=== PATIENT | male | born 1950 | race Caucasian/White ===

== ENCOUNTER 2016-05-01 17:50 | Inpatient (IN) | payer MEDICARE ==
--- NOTE | ~2016-05-01 | PN ---
Unit #: [id number] #: [id number] Patient: TEJAL ORTIZ [id number] [facility] [address] [place] [address] [id number] I MR#: [id number] NAME: TEJAL ORTIZ ROOM: P210 Age: 65 Sex: M Admission Date: 05/01/2016 : 1950 Attending Physician: Zackery Álvarez M.D. Admitting Physician: Zackery Álvarez M.D. Primary Care Physician: Primary Care Physician Bisi JACKSON PROGRESS NOTES DATE OF SERVICE 05/10/2016 DISCUSSION Mr. Ortiz is a 65-year-old white male who was seen today. Chart was reviewed and case was discussed with the staff. He remains anxious, withdrawn, depressed, and rather seclusive to himself. Meanwhile, he has been cooperative with the treatment recommendations and has been taking the medications and tolerating them fairly well with no reported side effects. MENTAL STATUS EXAMINATION An elderly white male who is casually dressed with fair personal hygiene, appears to be in no acute distress or discomfort. The patient was awake and alert on interaction with intact orientation. His mood is anxious with congruent affect. Speech is slow and goal-directed. He denies any suicidal or homicidal ideations. His insight and judgment remain slightly impaired. TREATMENT PLAN 1. We will continue him on his current medications and treatment protocol. We will monitor his response and make further adjustments as needed. 2. We will continue to follow up. Dictated by... Zackery Álvarez M.D. IAA/bzg TD: 05/11/2016 10:13 JOB #: [id number] Unit #: [id number] #: [id number] Patient: TEJAL ORTIZ PEABEKAH PROGRESS NOTES X Zackery Álvarez MD PROGRESS NOTE
--- NOTE | ~2016-05-01 | PN ---
Unit #: [id number] #: [id number] Patient: TEJAL STANTON [id number] [facility] [address] [place] [address] [id number] I MR#: [id number] NAME: TEJAL STANTON ROOM: P210 Age: 65 Sex: M Admission Date: 05/01/2016 : 1950 Attending Physician: Zackery Álvarez M.D. Admitting Physician: Zackery Álvarez M.D. Primary Care Physician: Primary Care Physician Bisi LUEVANO NOTES DATE 05/03/2016 DISCUSSION Mr. Stanton is a 65-year-old, white male with alcohol dependence and mood disorder who was seen today and chart was reviewed and case was discussed with the staff. He seemed to be anxious, withdrawn and seclusive to himself. Meanwhile, he has been cooperative with treatment recommendations. He has been taking medications and tolerating them fairly well with no reported side effects. MENTAL STATUS EXAM An elderly white male who was casually dressed with marginal personal hygiene, appears to be in some distress or discomfort. He was awake and alert with impaired attention and concentration. His mood was anxious with congruent affect. His speech was slow and restricted in content. His thought processes were disorganized with some looseness of associations. His insight and judgement remains slightly impaired. TREATMENT PLAN 1. We will continue him on his current medications and treatment protocol. We will monitor his response to the medication and make further adjustments as needed. 2. We will continue to follow up. Dictated by... Ayde Louis/oziel TD: 05/04/2016 00:26 JOB #: [id number] Unit #: [id number] #: [id number] Patient: TEJAL STANTON JOSEBEKAH PROGRESS NOTES X Zackery Álvarez MD PROGRESS NOTE
--- NOTE | ~2016-05-01 | PN ---
Unit #: [id number] #: [id number] Patient: TEJAL STANTON [id number] [facility] [address] [place] [address] [id number] I MR#: [id number] NAME: TEJAL STANTON ROOM: P210 Age: 65 Sex: M Admission Date: 05/01/2016 : 1950 Attending Physician: Zackery Álvarez M.D. Admitting Physician: Zackery Álvarez M.D. Primary Care Physician: Primary Care Physician Bisi LUEVANO NOTES DATE OF SERVICE 05/02/2016 DISCUSSION Mr. Stanton is a 65-year-old white male who was seen today. Chart was reviewed and case was discussed with the staff. He has been anxious, withdrawn though has not shown any agitation or irritability and has been cooperative with treatment recommendations and has been taking the medications and tolerating them fairly well with no reported side effects. MENTAL STATUS EXAMINATION An elderly white male who is casually dressed with marginal personal hygiene, appears to be in distress and discomfort. He was awake and alert with impaired attention and concentration. His mood is anxious with a congruent affect. His speech is slow and restricted in content. His thought processes were disorganized with some looseness of associations and paranoid ideations. His insight and judgment remain significantly impaired. TREATMENT PLAN 1. We will continue him on his current medications and treatment protocol. We will monitor his response to the medications and make further adjustments as needed. 2. We will continue to follow up. Dictated by... Ayde Louis/haiderg TD: 05/03/2016 08:48 JOB #: [id number] Unit #: [id number] #: [id number] Patient: TEJAL STANTON PEABEKAH PROGRESS NOTES X Zackery Álvarez MD PROGRESS NOTE
--- NOTE | ~2016-05-01 | A ---
[facility] Nutrition Therapy DATE: 05/16/16 Patient: TEJAL STANTON Physician: YOUSIFF Address: [facility] Room/Bed: [address], Zip: [place] [address] Admit Date: 05/01/16 Date of : [birth year] Height: 5 9 Weight: [phone] NUTRITIONAL ASSESSMENT: REASON: LOS PATIENT ADMITTED FOR ETOH ABUSE PMH: HTN, COPD Anthropometrics: HT: 5'9", WT: 206, BMI: 30.4, %IBW: 129 Labs: 05/02/16- NUTRITIONAL LABS WNL Meds: PROZAC, VISTARIL, SEROQUEL, REMERON, MVI, PATIENT COMPLETED DETOX PROTOCOL Assessment: CHART REVIEWED, EVENTS NOTED. PATIENT IS A 65 Y/O MALE ADMITTED FOR ETOH ABUSE. PATIENT IS CURRENTLY RETIRED, HOMELESS, AND HAS DAILY ETOH ABUSE. PATIENT STATED NO RECENT WEIGHT LOSS. WEIGHT HX PER [employer] SHOWS WEIGHT FLUCTUATIONS OF 180-206# OVER LAST 5 YEARS, HOWEVER WEIGHTS DO SHOW AN UPWARD TREND. NURSING REPORTS CONSISTENTLY GOOD PO INTAKES. PATIENT HAS A HX OF INPATIENT PSYCH HOSPITALIZATIONS WITH A HX OF POOR COMPLIANCE WITH TREATMENT RECOMMENDATIONS AND OUTPATIENT FOLLOW-UP. THERE ARE NO SKIN OR GI ISSUES NOTED ATT. PATIENT IS ON A REGULAR DIET WITH LARGE PORTION ENTREES. Dx: EXCESSIVE CALORIC INTAKE R/T CURRENT CONDITION AEB HIGH BMI, >110% IBW, WEIGHTS TRENDING UP OVER LAST 5 YEARS. Intervention: 1. REGULAR DIET WITH LARGE PORTION ENTREES, 2. MEDS PER MD, 3. PSYCH Monitoring, Evaluation and Goals: 1. ADEQUATE PO INTAKES >50% OF MEALS 2. PREVENT, CORRECT MICRO/MACRO NUTRIENT DEFICIENCIES MONITOR: WEIGHTS, LABS, PO/FLUID INTAKES Recommendations: 1. CONTINUE REGULAR DIET TOLERATED. RECOMMEND D/Cing LARGE PORTION ENTREES D/T NO NUTRITIONAL NEED FOR INCREASED CALORIC INTAKES AND INCREASING WEIGHT 2. CONSULT RD WITH ANY FURTHER NUTRITION CONCERNS/ISSUES RD TO F/U PER PROTOCOL AND PRN R/T PATIENT MILDLY COMPROMISED [facility] Nutrition Therapy DATE: 05/16/16 Patient: TEJAL STANTON Physician: YOUSIFF Address: [facility] Room/Bed: [address], Zip: [place] [address] Admit Date: 05/01/16 Date of : [birth year] Height: 5 9 Weight: [phone] Respectfully, RAO MORILLO RD, LD [facility] Nutrition[facility] cc: client file
--- NOTE | ~2016-05-01 | PN ---
Unit #: [id number] #: [id number] Patient: TEJAL STANTON [id number] [facility] [address] [place] [address] [id number] I MR#: [id number] NAME: TEJAL STANTON ROOM: P210 Age: 65 Sex: M Admission Date: 05/01/2016 : 1950 Attending Physician: Zackery Álvarez M.D. Admitting Physician: Zackery Álvarez M.D. Primary Care Physician: Primary Care Physician Bisi JACKSON PROGRESS NOTES DATE OF SERVICE: 05/14/2016 SUBJECTIVE Mr. Stanton is a 65-year-old white male, who was seen today and chart was reviewed and the case was discussed with the staff. He reports doing somewhat better than yesterday and has been showing improvement in his depression and anxiety as he has been taking medications and tolerating them fairly well. MENTAL STATUS EXAMINATION An elderly white male who was casually dressed with fair personal hygiene, appears to be in no acute distress or discomfort. He was awake and alert on interaction with intact orientation. His mood was anxious with a congruent affect. His speech was slow and goal directed. He denies any suicidal or homicidal ideations, and also denies any auditory or visual hallucinations. His insight and judgment remain slightly impaired. TREATMENT PLAN 1. We will continue him on his current medications and treatment protocol. We will monitor his response to medications and make further adjustments as needed. 2. We will continue to follow up. Dictated by... Ayde Louis/marcelle TD: 05/15/2016 02:50 JOB #: [id number] [facility] PROGRESS NOTES X Zackery Álvarez MD PROGRESS NOTE
--- NOTE | ~2016-05-01 | PN ---
Unit #: [id number] #: [id number] Patient: TEJAL STANTON [id number] [facility] [address] [place] [address] [id number] I MR#: [id number] NAME: TEJAL STANTON ROOM: P210 Age: 65 Sex: M Admission Date: 05/01/2016 : 1950 Attending Physician: Zackery Álvarez M.D. Admitting Physician: Zackery Álvarez M.D. Primary Care Physician: Primary Care Physician Bisi JACKSON PROGRESS NOTES DATE OF SERVICE 05/13/2016 DISCUSSION Mr. Stanton is a 65-year-old white male who was seen today. Chart was reviewed and case was discussed with the staff. He has been anxious, withdrawn, and rather seclusive to himself. Meanwhile, he has been cooperative with the treatment recommendations and has been taking the medications and tolerating them fairly well. MENTAL STATUS EXAMINATION An elderly white male who is casually dressed with fair personal hygiene, appears to be in no acute distress or discomfort. He was awake and alert on interaction with intact orientation. His mood is anxious with congruent affect. His speech is slow and goal-directed. He denies any suicidal or homicidal ideations and also denies any auditory or visual hallucinations. His insight and judgment remain slightly impaired. TREATMENT PLAN We will continue him on his current treatment protocol. We will monitor his response and make further adjustments as needed. Dictated by... Ayde Louis/bzg TD: 05/15/2016 07:17 JOB #: [id number] [facility] PROGRESS NOTES X Zackery Álvarez MD PROGRESS NOTE
--- NOTE | ~2016-05-01 | PN ---
Unit #: [id number] #: [id number] Patient: TEJAL STANTON [id number] [facility] [address] [place] [address] [id number] I MR#: [id number] NAME: TEJAL STANTON ROOM: P210 Age: 65 Sex: M Admission Date: 05/01/2016 : 1950 Attending Physician: Zackery Álvarez M.D. Admitting Physician: Zackery Álvarez M.D. Primary Care Physician: Primary Care Physician Bisi LUEVANO NOTES DATE 05/09/2016 DISCUSSION Mr. Stanton is a 65-year-old, white male who was seen today and chart was reviewed and case was discussed with the staff. He was seen to be anxious, withdrawn, depressed and seclusive to himself stating not feeling good and having increasing depression. Meanwhile, he has been taking medications and tolerating them fairly well with no reported side effects. MENTAL STATUS EXAM An elderly white male who was casually dressed with fair personal hygiene, appears to be in no acute distress or discomfort. He was awake and alert on interaction with intact orientation. His mood was anxious with congruent affect. He denies any suicidal or homicidal ideation. Also, denies any auditory or visual hallucinations. His insight and judgement remains slightly impaired. TREATMENT PLAN 1. We will continue him on his current medications and treatment protocol. We will monitor his response to the medication and make further adjustments as needed. 2. We will continue to follow up. Dictated by... Ayde Louis/oziel TD: 05/10/2016 20:31 JOB #: [id number] Unit #: [id number] #: [id number] Patient: TEJAL STANTON JOSEBEKAH PROGRESS NOTES X Zackery Álvarez MD PROGRESS NOTE
--- NOTE | ~2016-05-01 | PN ---
Unit #: [id number] #: [id number] Patient: TEJAL STANTON [id number] [facility] [address] [place] [address] [id number] I MR#: [id number] NAME: TEJAL STANTON ROOM: P210 Age: 65 Sex: M Admission Date: 05/01/2016 : 1950 Attending Physician: Zackery Álvarez M.D. Admitting Physician: Zackery Álvarez M.D. Primary Care Physician: Primary Care Physician Bisi JACKSON PROGRESS NOTES DATE OF SERVICE: 05/15/2016 SUBJECTIVE Mr. Gilliland is a 65-year-old white male, who was seen today and chart was reviewed and the case was discussed with the staff. He has been doing fairly well and reports some improvement in his depressive symptoms. Meanwhile, he has been taking medications and tolerating them fairly well with no reported side effects. MENTAL STATUS EXAMINATION An elderly white male who was casually dressed with fair personal hygiene, appears to be in no acute distress or discomfort. He was awake and alert on interaction with intact orientation. His mood was anxious with a congruent affect. His speech was slow and goal directed. He denies any suicidal or homicidal ideations, and also denies any auditory or visual hallucinations. His insight and judgment remain slightly impaired. TREATMENT PLAN 1. We will continue on his current medications and treatment protocol. We will monitor his response to medications and make further adjustments as needed. 2. We will continue to follow up. Dictated by... Ayde Louis/marcelle TD: 05/16/2016 02:01 JOB #: [id number] [facility] PROGRESS NOTES X Zackery Álvarez MD PROGRESS NOTE
--- NOTE | ~2016-05-01 | PN ---
Unit #: [id number] #: [id number] Patient: TEJAL ORTIZ [id number] [facility] [address] [place] [address] [id number] I MR#: [id number] NAME: TEJAL ORTIZ ROOM: P210 Age: 65 Sex: M Admission Date: 05/01/2016 : 1950 Attending Physician: Zackery Álvarez M.D. Admitting Physician: Zackery Álvarez M.D. Primary Care Physician: Primary Care Physician Bisi JACKSON PROGRESS NOTES DATE 05/05/2016 DISCUSSION Mr. Ortiz is a 65-year-old white male who was seen today and chart was reviewed and case was discussed with the staff. He has been anxious, withdrawn and . Meanwhile he has been taking medications and tolerating them fairly well no reported side-effects. MENTAL STATUS EXAMINATION An elderly white male who was casually dressed with fair personal hygiene and appears to be in slight distress and discomfort. He was awake and alert with impaired attention and concentration. His mood was anxious with congruent affect. He denies any suicidal or homicidal ideations. His insight and judgement remains slightly impaired. TREATMENT PLAN 1. Will continue his current medications and treatment protocol. Will monitor his response to medications and make further adjustments as needed. 2. Will continue to follow up. Dictated by... Zackery Álvarez M.D. IAA/livan TD: 05/05/2016 19:48 JOB #: [id number] Unit #: [id number] #: [id number] Patient: TEJAL ORTIZ PROGRESS NOTES Page 1 of 1 X Zackery Álvarez MD PROGRESS NOTE
--- NOTE | ~2016-05-01 | PN ---
Unit #: [id number] #: [id number] Patient: TEJAL STANTON [id number] [facility] [address] [place] [address] [id number] I MR#: [id number] NAME: TEJAL STANTON ROOM: P210 Age: 65 Sex: M Admission Date: 05/01/2016 : 1950 Attending Physician: Zackery Álvarez M.D. Admitting Physician: Zackery Álvarez M.D. Primary Care Physician: Primary Care Physician Bisi JACKSON PROGRESS NOTES DATE May 17, 2016 DISCUSSION Mr. Stanton is a 65-year-old white male, who was seen today and chart was reviewed and the case was discussed with the staff. He has been anxious, withdrawn, and rather seclusive to himself. Meanwhile, he has been cooperative with the treatment recommendations and he has been taking the medications and tolerating them fairly well with no reported side effects. MENTAL STATUS EXAMINATION An elderly white male, who was casually dressed with fair personal hygiene and appears to be in no acute distress or discomfort. He was awake and alert on interaction with intact orientation. His mood is anxious with a congruent affect. He denies any suicidal or homicidal ideations. His insight and judgment remain slightly impaired. TREATMENT PLAN 1. We will continue him on his current medications and treatment protocol, and will monitor his response to the medications, and make further adjustments as needed. 2. We will continue to followup. Dictated by... Ayde Louis/unique TD: 05/18/2016 10:03 JOB #: [id number] [facility] PROGRESS NOTES X Zackery Álvarez MD PROGRESS NOTE
--- NOTE | ~2016-05-01 | PN ---
Unit #: [id number] #: [id number] Patient: TEJAL STANTON [id number] [facility] [address] [place] [address] [id number] I MR#: [id number] NAME: TEJAL STANTON ROOM: P210 Age: 65 Sex: M Admission Date: 05/01/2016 : 1950 Attending Physician: Zackery Álvarez M.D. Admitting Physician: Zackery Álvarez M.D. Primary Care Physician: Primary Care Physician Bisi LUEVANO NOTES DATE OF SERVICE: 05/08/2016 SUBJECTIVE Mr. Gilliland is a 65-year-old white male, who was seen today and chart was reviewed and the case was discussed with the staff. He has been anxious and withdrawn, though has not shown any agitation, irritability, or behavioral problems and has been cooperative with the treatment recommendations and has been taking the medications and tolerating them fairly well with no reported side effects. MENTAL STATUS EXAMINATION An elderly white male, who was casually dressed with fair personal hygiene, appears to be in no acute distress or discomfort. He was awake and alert on interaction with intact orientation. His mood was anxious with a congruent affect. His speech was slow and goal directed. He denies any suicidal or homicidal ideations and also denies any auditory or visual hallucinations. His insight and judgment remain slightly impaired. TREATMENT PLAN 1. We will continue him on his current medications and treatment protocol. We will monitor his response and make further adjustments as needed. 2. We will continue to follow up. Dictated by... Ayde Louis/marcelle TD: 05/09/2016 16:07 JOB #: [id number] [facility] PROGRESS NOTES X Zackery Álvarez MD PROGRESS NOTE
--- NOTE | ~2016-05-01 | PN ---
Unit #: [id number] #: [id number] Patient: TEJAL STANTON [id number] [facility] [address] [place] [address] [id number] I MR#: [id number] NAME: TEJAL STANTON ROOM: P210 Age: 65 Sex: M Admission Date: 05/01/2016 : 1950 Attending Physician: Zackery Álvarez M.D. Admitting Physician: Zackery Álvarez M.D. Primary Care Physician: Primary Care Physician Bisi JACKSON PROGRESS NOTES DATE May 07, 2016 DISCUSSION Mr. Stanton is a 65-year-old white male, with mood disorder, and substance abuse, who was seen today and chart was reviewed and the case was discussed with the staff. He reports not feeling good and reports persistent anxiety and depression, and also has been complaining of respiratory infection. Meanwhile, he has been taking the medications and tolerating them fairly well with no reported side effects. MENTAL STATUS EXAMINATION An elderly white male, who was casually dressed with fair personal hygiene and appears to be in no acute distress or discomfort. He was awake and alert on interaction with intact orientation. His mood is anxious with a congruent affect. He denies any suicidal or homicidal ideations. His insight and judgment remain slightly impaired. TREATMENT PLAN 1. We will continue him on his current medications and treatment protocol, and will monitor his response to the medications, and make further adjustments as needed. 2. We will continue to followup. Dictated by... Ayde Louis/unique TD: 05/09/2016 07:35 JOB #: [id number] [facility] PROGRESS NOTES X Zackery Álvarez MD PROGRESS NOTE
--- NOTE | ~2016-05-01 | HP ---
Unit #: [id number] #: [id number] Patient: IGOR STANTON [id number] [place] [address] [id number] I MR#: [id number] NAME: IGOR STANTON ROOM: P210 Age: 65 Sex: M Admission Date: 05/01/2016 : 1950 Attending Physician: Zackery Álvarez M.D. Admitting Physician: Zackery Álvarez M.D. Primary Care Physician: Primary Care Physician No HISTORY AND PHYSICAL HISTORY OF PRESENT ILLNESS Igor is a 65 year old, admitted to [address] [place] [address] because of his continued abuse of alcohol. He has had other admissions to this facility. PAST MEDICAL HISTORY 1. Long history of alcohol abuse. 2. High blood pressure. 3. Chronic obstructive pulmonary disease. PAST SURGICAL HISTORY 1. Cholecystectomy. 2. Tonsillectomy and adenoidectomy. ALLERGIES Losartan, Z-Pratik. SOCIAL HISTORY He smokes one pack per day. He drinks a 5th of liquor on a daily basis and denies illicit drug use. FAMILY HISTORY Medically noncontributory. REVIEW OF SYSTEMS CONSTITUTIONAL: No fever or chills. HEENT: Denies any sore throat, ear pain or runny nose. CARDIOVASCULAR: Denies chest pain, irregular heart rhythm or palpitations. CHEST: Denies shortness of breath or cough. No hemoptysis. GASTROINTESTINAL: Denies nausea, vomiting, diarrhea or chronic constipation. ENDOCRINE: Denies history of increased thirst or urination. No recent significant weight loss or gain. GENITOURINARY: Denies dysuria, frequency, or hematuria. SKIN: Denies any rashes. HEMATOLOGIC: Denies history of increased bleeding or bruising. MUSCULOSKELETAL: Denies any hot, swollen joints. No generalized muscle pain. NEUROLOGIC: Denies problems with vision or speech. No frequent, severe headaches. No numbness, tingling or weakness in any extremities. Denies loss of bladder or bowel control. CURRENT MEDICATIONS Detox protocol. Unit #: [id number] #: [id number] Patient: IGOR STANTON PHYSICAL EXAMINATION GENERAL: Alert, well-nourished, no apparent distress. VITAL SIGNS: Blood pressure 140/74, heart rate 80, respirations 16, and temperature 98. 6. WEIGHT: 206 pounds. HEIGHT: 5 feet 9 inches. SKIN: Warm and dry without rash or lesion. HEENT: Normocephalic. TMs not viewed. Oral and nasal passages clear. Conjunctivae clear. PERRLA. EOMs intact. NECK: Supple without lymphadenopathy or thyromegaly. HEART: Regular rate and rhythm without murmur. LUNGS: Clear. ABDOMEN: Soft, nontender. : Not done. EXTREMITIES: No evidence of cyanosis, clubbing or edema. Moves all without focal deficit. NEUROLOGICAL: Grossly within normal limits. Cranial Nerves: II: Visual porter are intact. III, IV AND : Extraocular movements are intact. Pupils are equal, round and reactive to light. V: Facial sensation is grossly normal. VII: Facial movements and expression are normal. VIII: Auditory acuity grossly intact. IX, X: Uvula is midline. Phonation is normal. XI: Patient shrugs shoulders and turns head normally. XII: Tongue protrudes in the midline. Sensory and Motor Function: Sensory and motor sensation is grossly normal. Motor: moves all extremities well. Coordination: Gait is normal. Deep Tendon Reflexes: Intact. IMPRESSION Psychiatric admission. RECOMMENDATIONS Psychiatric, per psychiatrist. MEDICAL I see no contraindications to participating in facility's activities. MEDICAL PROGNOSIS Good. MEDICAL CONDITION Stable. Dictated by... Marlen Ceballos PBrandanABrandan-Rafael. for Ayde Blackmon/unique TD: 05/02/2016 12:02 JOB #: [id number] Unit #: [id number] #: [id number] Patient: IGOR STANTON HISTORY AND PHYSICAL X Marlen Ceballos X HISTORY AND PHYSICAL
--- NOTE | ~2016-05-01 | PN ---
Unit #: [id number] #: [id number] Patient: TEJAL STANTON [id number] [facility] [address] [place] [address] [id number] I MR#: [id number] NAME: TEJAL STANTON ROOM: P210 Age: 65 Sex: M Admission Date: 05/01/2016 : 1950 Attending Physician: Zackery Álvarez M.D. Admitting Physician: Zackery Álvarez M.D. Primary Care Physician: Primary Care Physician Bisi JACKSON PROGRESS NOTES DATE May 16, 2016 DISCUSSION Mr. Stanton is a 65-year-old white male, who was seen today and chart was reviewed and the case was discussed with the staff. He reports doing somewhat better and has been showing improvement in his mood and depression, and has been calm and cooperative with the treatment recommendations. He has been taking the medications and tolerating them fairly well. MENTAL STATUS EXAMINATION An elderly white male, who was casually dressed with fair personal hygiene and appears to be in no acute distress or discomfort. He was awake and alert on interaction with intact orientation. His mood was anxious with a congruent affect. He denies any suicidal or homicidal ideations, and also denies any auditory or visual hallucinations. His insight and judgment remain slightly impaired. TREATMENT PLAN 1. We will continue him on his current medications and treatment protocol, and will monitor his response to the medications, and make further adjustments as needed. 2. We will continue to followup. Dictated by... Ayde Louis/unique TD: 05/17/2016 12:25 JOB #: [id number] Unit #: [id number] #: [id number] Patient: TEJAL STANTON PROGRESS NOTES X Zackery Álvarez MD X PROGRESS NOTE
--- NOTE | ~2016-05-01 | PN ---
Unit #: [id number] #: [id number] Patient: TEJAL STANTON [id number] [facility] [address] [place] [address] [id number] I MR#: [id number] NAME: TEJAL STANTON ROOM: P210 Age: 65 Sex: M Admission Date: 05/01/2016 : 1950 Attending Physician: Zackery Álvarez M.D. Admitting Physician: Zackery Álvarez M.D. Primary Care Physician: Primary Care Physician Bisi LUEVANO NOTES DATE 05/06/2016 DISCUSSION Mr. Stanton is a 65-year-old, white male who was seen today and chart was reviewed and case was discussed with the staff. He has been anxious, withdrawn and seclusive to himself though has been polite and pleasant and cooperative with the treatment recommendations. He has been taking the medication and tolerating them fairly well with no reported side effects. MENTAL STATUS EXAM An elderly white male who was casually dressed with fair personal hygiene, appears to be in no acute distress or discomfort. He was awake and alert on interaction with intact orientation. His mood was anxious with congruent affect. He denies any suicidal or homicidal ideation. He denies any auditory or visual hallucinations. His insight and judgement remains slightly impaired. TREATMENT PLAN 1. We will continue him on his current medications and treatment protocol. We will monitor his response to the medication and make further adjustments as needed. 2. We will continue to follow up. Dictated by... Ayde Louis/oziel TD: 05/07/2016 20:03 JOB #: [id number] Unit #: [id number] #: [id number] Patient: TEJAL STANTON MANUEL LUEVANO NOTES X Zackery Álvarez MD PROGRESS NOTE
--- NOTE | ~2016-05-01 | PN ---
Unit #: [id number] #: [id number] Patient: TEJAL ORTIZ [id number] [facility] [address] [place] [address] [id number] I MR#: [id number] NAME: TEJAL ORTIZ ROOM: P210 Age: 65 Sex: M Admission Date: 05/01/2016 : 1950 Attending Physician: Zackery Álvarez M.D. Admitting Physician: Zackery Álvarez M.D. Primary Care Physician: Primary Care Physician Bisi LUEVANO NOTES DATE OF SERVICE 05/11/2016 DISCUSSION Mr. Ortiz is a 65-year-old white male who was seen today. Chart was reviewed and case was discussed with the staff. He has been anxious and withdrawn though has not shown any agitation or irritability and has been cooperative with the treatment recommendations as he has been taking the medications and tolerating them fairly well. MENTAL STATUS EXAMINATION An elderly white male who is casually dressed with fair personal hygiene, appears to be in no acute distress or discomfort. He was awake and alert on interaction with intact orientation. His mood is anxious with a congruent affect. He denies any suicidal or homicidal ideations and also denies any auditory or visual hallucinations. His insight and judgment remain slightly impaired. TREATMENT PLAN 1. We will continue him on his current medications and treatment protocol. We will monitor his response to the medications and make further adjustments as needed. 2. We will continue to follow up. Dictated by... Zackery Álvarez M.D. IAA/bzg TD: 05/12/2016 08:42 JOB #: [id number] Unit #: [id number] #: [id number] Patient: TEJAL ORTIZ JOSEBEKAH PROGRESS NOTES X Zackery Álvarez MD X PROGRESS NOTE
--- NOTE | ~2016-05-01 | PA ---
Unit #: [id number] #: [id number] [facility]: [facility] STANTON [id number] [facility] [address] [place] [address] [id number] I MR#: [id number] NAME: TEJAL STANTON ROOM: P210 Age: 65 Sex: M Admission Date: 05/01/2016 : 1950 Date of Assessment: 05/01/2016 Attending Physician: Zackery Álvarez M.D. Admitting Physician: Zackery Álvarez M.D. Primary Care Physician: Primary Care Physician No PSYCHIATRIC ASSESSMENT DATE OF SERVICE 05/01/2016. HISTORY OF PRESENT ILLNESS Mr. Acuña is a 65-year-old , disabled, white male, who is known to us from previous encounter with long history of alcohol dependence and once again was self-referred to the hospital with a blood alcohol level of 0.183 and upon presentation, he stated "I'm having mental breakdown. I'm going to kill myself. I'm so depressed time all I've been here a couple of times and I told the doctor to give me medicine and I get out and drink when I'm depressed. I'm tired of drinking when I get depressed and got drink and the world has turned upside down. I spent the past month in a motel. I was depressed. I've crying spells. I'm thinking about committing suicide a lot. I don't know what is going on in my life." The patient does endorse increasing depression, anxiety, irritability, restlessness, feelings of hopelessness and helplessness, and suicidal ideations with intent and plan. SUBSTANCE ABUSE HISTORY The patient reports long history of alcohol dependence, stating that he has been drinking since he was 30 years old and he has been drinking every day and has not been able to stay sober. PAST PSYCHIATRIC HISTORY The patient has had history [facility] and has history of poor compliance with outpatient treatment and does not follow up with treatment recommendations after discharged from the hospital. Once again, he is not seeing a psychiatrist or taking any psychotropic medications. PAST MEDICAL HISTORY No acute or chronic medical illnesses. ALLERGIES No known medication allergies. CURRENT MEDICATIONS None. PERSONAL AND SOCIAL HISTORY A [id number] male, who reports that he is single, unemployed, disabled, and homeless and has poor social support system. Unit #: [id number] #: [id number] Patient: TEJAL STANTON MENTAL STATUS EXAMINATION An elderly white male who was casually dressed with fair personal hygiene, appears to be in no acute distress or discomfort. He was awake and alert on interaction with intact orientation. His mood was anxious and depressed with a congruent affect. His speech was slow and restricted in content. He reports having suicidal ideation, but denies any homicidal ideations, and also denies any auditory or visual hallucinations. His insight and judgment remain significantly impaired. DIAGNOSTIC IMPRESSION Psychiatric: Major depressive disorder, recurrent, moderate, without psychotic features; alcohol dependence, moderate and acute withdrawals. Medical: None. Stressors: Moderate psychosocial stressors. TREATMENT PLAN 1. The patient has presented with history of mood disorder and substance abuse and has been decompensating and will need inpatient hospitalization for safety and stabilization and medical detoxification. We will start him on detox protocol. We will also consider a trial of an antidepressant therapy. 2. Supportive therapy was provided to the patient. 3. Safe, structured, and nourishing environment will be provided. ESTIMATED LENGTH OF STAY 5 to 7 days. ABILITY TO HELP SELF Limited. WILLINGNESS TO HELP SELF The patient appears to be willing to help self. STRENGTHS 1. Communicative. 2. Cooperative. PROBLEMS 1. Chronic dysphoric symptoms. 2. Chronic chemical dependency. 3. Poor social support system. DISCHARGE CRITERIA This will be contingent upon the patient's ability to show resolution of his depression and his ability to go through detox without any significant withdrawal symptoms as well as his ability to stay safe to himself, particularly after discharge from the hospital. Dictated by... Ayde Louis/marcelle TD: 05/02/2016 07:09 JOB #: [id number] Unit #: [id number] #: [id number] Patient: TEJAL STANTON PSYCHIATRIC ASSESSMENT X Zackery Álvarez MD PSYCHIATRIC ASSESSMENT
--- NOTE | ~2016-05-01 | PN ---
Unit #: [id number] #: [id number] Patient: TEJAL ORTIZ [id number] [facility] [address] [place] [address] [id number] I MR#: [id number] NAME: TEJAL ORTIZ ROOM: P210 Age: 65 Sex: M Admission Date: 05/01/2016 : 1950 Attending Physician: Zackery Álvarez M.D. Admitting Physician: Zackery lÁvarez M.D. Primary Care Physician: Primary Care Physician Bisi LUEVANO NOTES DATE OF SERVICE 05/04/2016 DISCUSSION Mr. Ortiz is a 65-year-old white male who was seen today. Chart was reviewed and case was discussed with the staff. He has been anxious, restless, shaky, and tremulous, and has been expressing some acute withdrawal symptoms. Meanwhile, he has been taking the medications and tolerating them fairly well. MENTAL STATUS EXAMINATION An elderly white male who is casually dressed with fair personal hygiene, appears to be in no acute distress or discomfort. He was awake and alert on interaction with intact orientation. Her mood is anxious with congruent affect. He denies any suicidal or homicidal ideations and also denies any auditory or visual hallucinations. His insight and judgment remain slightly impaired. TREATMENT PLAN 1. We will continue him on his current medications and treatment protocol. We will monitor his response to the medications and make further adjustments as needed. 2. We will continue to follow up. Dictated by... Zackery Álvarez M.D. IAA/bzg TD: 05/04/2016 14:34 JOB #: [id number] Unit #: [id number] #: [id number] Patient: TEJAL ORTIZ PEABEKAH PROGRESS NOTES X Zackery Álvarez MD X PROGRESS NOTE
--- NOTE | ~2016-05-01 | DS ---
Unit #: [id number] #: [id number] Patient: TEJAL STANTON [id number] [facility] [address] [place] [address] [id number] I MR#: [id number] NAME: TEJAL STANTON ROOM: P210 Age: 65 Sex: M Admission Date: 05/01/2016 : 1950 Discharge Date: 05/17/2016 Attending Physician: Zackery Álvarez M.D. Primary Care Physician: Primary Care Physician No DISCHARGE SUMMARY IDENTIFYING DATA Mr. Gilliland is a 65-year-old , disabled white male who is known to us from previous encounter and was self-referred to the hospital. DISCHARGE DIAGNOSES Psychiatric: Major depressive disorder, recurrent, moderate, without psychotic features; alcohol dependence, moderate and acute withdrawals. Medical: None. Stressors: Moderate psychosocial stressors. HISTORY OF PRESENT ILLNESS Please see initial psychiatric evaluation for details. PAST PSYCHIATRIC HISTORY Please see initial psychiatric evaluation for details. PAST MEDICAL HISTORY Please see initial psychiatric evaluation for details. HOSPITAL COURSE The patient was admitted to the adult chemical dependency psychiatric unit at [facility] and was oriented to the hospital environment. Routine p.r.n. medications were initiated, and he was started on the alcohol detox protocol and was seen to be anxious, withdrawn, unkempt, disheveled, in distress and discomfort; however, he was compliant with the treatment recommendations and was able to come out of the detox, but then was complaining of significant depressive symptoms with feelings of hopelessness and was seen to be very seclusive to himself and was not doing ADLs and functioning very well and as such, Remeron was initiated and since he was still having sleep issues, Seroquel was added into it; however, he was not showing a therapeutic response and was constantly complaining of depression and Prozac was then added into his Remeron and was seen to be doing much better and was calm and cooperative and compliant with treatment recommendations and was taking the medications regularly and was tolerating them fairly well, and was able to show a decent therapeutic response with improvement in depression and anxiety, and was denying any suicidal ideations, intent, or plan and as such, it was decided that he will be discharged from the hospital and will continue treatment on an outpatient basis. DISCHARGE MEDICATIONS Remeron 15 mg at bedtime for depression, Seroquel 100 mg at bedtime for depression, and Prozac 20 mg a day for depression. Unit #: [id number] #: [id number] Patient: TEJAL STATNON DISCHARGE CONDITION Stable. PROGNOSIS Fair. Dictated by... Ayde Louis/marcelle TD: 05/18/2016 07:21 JOB #: [id number] DISCHARGE SUMMARY X Zackery Álvarez MD X DISCHARGE SUMMARY
--- NOTE | ~2016-05-01 | PN ---
Unit #: [id number] #: [id number] Patient: TEJAL STANTON [id number] [facility] [address] [place] [address] [id number] I MR#: [id number] NAME: TEJAL STANTON ROOM: P210 Age: 65 Sex: M Admission Date: 05/01/2016 : 1950 Attending Physician: Zackery Álvarez M.D. Admitting Physician: Zackery Álvarez M.D. Primary Care Physician: Primary Care Physician Bisi LUEVANO NOTES DATE 05/12/2016 DISCUSSION Mr. Stanton is a 65-year-old, white male who was seen today and chart was reviewed and case was discussed with the staff. He has been anxious, withdrawn though has not shown any agitation, irritability or behavioral problems and has been cooperative with treatment recommendations as he has been taking medications and tolerating them fairly well with no reported side effects. MENTAL STATUS EXAM An elderly white male who was casually dressed with fair personal hygiene, appears to be in no acute distress or discomfort. He was awake and alert on interaction with intact orientation. His mood was anxious with congruent affect. His speech was slow and goal directed. He denies any suicidal or homicidal ideation. His insight and judgement remains slightly impaired. TREATMENT PLAN We will continue him on his current medications and treatment protocol. We will monitor his response and make further adjustments as needed. Dictated by... Ayde Louis/oziel TD: 05/14/2016 21:23 JOB #: [id number] [facility] PROGRESS NOTES X Zackery Álvarez MD PROGRESS NOTE
[~2016-05-01 17:50] MED LIST: LORTAB 7.5-5001 TAB PO; NO MEDICATIONS; PHENERGAN25 MG PO
[2016-05-02 09:39] LABS: BASOPHIL# 0.1 X10e3 (0-0.3); BASOPHIL% 1.2 % (0-2.5); EOSINOPHIL# 0.2 X10e3 (0-0.7); EOSINOPHIL% 3.7 % (0.0-7.0); HEMATOCRIT 49.6 % (38.0-50.0); HEMOGLOBIN 17.2 gm/dL (13.0-16.0); LYMPHOCYTE# 1.5 X10e3 (1.0-3.5); LYMPHOCYTE% 31.3 % (17.0-45.0); MEAN CELL VOLUME 94.9 FL (83-96); MEAN CORPUSCULAR HGB CONC 34.7 g/dL (30-36); MONOCYTE# 0.6 X10e3 (0-1.0); NEUTROPHIL# 2.5 X10e3 (1.5-7.1); NEUTROPHIL% 51.8 % (40-75); PLATELET COUNT 160 X10e3 (140-420); RED BLOOD COUNT 5.23 X10e (3.90-5.60); RED CELL DISTRIBUTION WIDTH 14.4 % (11.0-15.5); WHITE BLOOD COUNT 4.8 X10e3 (4.0-10.5)
[2016-05-02 09:49] LABS: DIFF IND NO
[2016-05-02 09:51] LABS: ALBUMIN SERUM 4.3 g/dL (3.5-5.0); ALKALINE PHOSPHATASE 74 U/L (32-92); ALT (SGPT) 40 U/L (10-40); AST (SGOT) 49 U/L (10-42); BILIRUBIN,TOTAL 0.9 mg/dL (0.2-2.0); BLOOD UREA NITROGEN 9 mg/dL (9-23); CALCIUM SERUM 9.1 mg/dL (8.4-10.2); CARBON DIOXIDE 31 mmol/L (22-31); CHLORIDE 101 mmol/L (100-111); CREATININE SERUM 0.9 mg/dL (0.6-1.4); GLOM FILT RATE Estimated ABOVE60 mL/min (>60); GLUCOSE FASTING 96 mg/dL (70-110); POTASSIUM 4.7 mmol/L (3.5-5.1); PROTEIN TOTAL SERUM 8.1 g/dL (6.0-8.3); SODIUM 137 mmol/L (135-145)
[2016-05-17 09:33] LABS: BASOPHIL# 0.1 X10e3 (0-0.3); BASOPHIL% 1.7 % (0-2.5); EOSINOPHIL# 0.4 X10e3 (0-0.7); EOSINOPHIL% 6.2 % (0.0-7.0); HEMATOCRIT 47.7 % (38.0-50.0); HEMOGLOBIN 16.6 gm/dL (13.0-16.0); LYMPHOCYTE# 1.8 X10e3 (1.0-3.5); LYMPHOCYTE% 30.4 % (17.0-45.0); MEAN CELL VOLUME 94.8 FL (83-96); MEAN CORPUSCULAR HGB CONC 34.8 g/dL (30-36); MEAN PLATELET VOLUME 7.4 FL (6.5-11.5); MONOCYTE# 0.4 X10e3 (0-1.0); MONOCYTE% 7.6 % (3.0-12.0); NEUTROPHIL# 3.2 X10e3 (1.5-7.1); NEUTROPHIL% 54.1 % (40-75); PLATELET COUNT 274 X10e3 (140-420); RED BLOOD COUNT 5.03 X10e (3.90-5.60); RED CELL DISTRIBUTION WIDTH 13.2 % (11.0-15.5); WHITE BLOOD COUNT 5.9 X10e3 (4.0-10.5)
[2016-05-17 09:34] LABS: DIFF IND NO
[2016-05-17 09:56] LABS: THYROID STIMULATING HORMONE 1.26 uIU/ml (0.34-5.60)
[2016-05-17 10:03] LABS: FREE THYROXIN (T4) 0.78 ng/dL (0.58-1.64)
[2016-05-17 10:07] LABS: ALKALINE PHOSPHATASE 70 U/L (32-92); ALT (SGPT) 39 U/L (10-40); AST (SGOT) 34 U/L (10-42); BILIRUBIN,TOTAL 0.6 mg/dL (0.2-2.0); BLOOD UREA NITROGEN 17 mg/dL (9-23); CALCIUM SERUM 9.3 mg/dL (8.4-10.2); CARBON DIOXIDE 27 mmol/L (22-31); CHLORIDE 105 mmol/L (100-111); GLOM FILT RATE Estimated ABOVE60 mL/min (>60); GLUCOSE FASTING 123 mg/dL (70-110); POTASSIUM 3.9 mmol/L (3.5-5.1); PROTEIN TOTAL SERUM 7.3 g/dL (6.0-8.3); SODIUM 138 mmol/L (135-145)
== END 2016-05-18 11:25 | disposition home or self-care (01) | DRG 885 ==
LOC: P2S 17:50
PROVIDERS: Psychiatry & Neurology Psychiatry
PROC: HZ2ZZZZ Detoxification Services for Substance Abuse Treatment (ICD-10-PCS; principal; 2016-05-01)
DX: F33.1 Major depressive disorder, recurrent, moderate (principal); F10.239 Alcohol dependence with withdrawal, unspecified; F17.210 Nicotine dependence, cigarettes, uncomplicated
CPT/HCPCS: 80053; 84439; 84443; 85025; 86592

== ENCOUNTER 2016-06-17 20:35 | Inpatient (IN) | payer MEDICARE ==
--- NOTE | ~2016-06-17 | PN ---
Unit #: [id number] #: [id number] Patient: TEJAL STANTON [id number] [facility] [address] [place] [address] [id number] MR#: [id number] NAME: TEJAL STANTON ROOM: P210 Age: 65 Sex: M Admission Date: 06/17/2016 : 1950 Attending Physician: Zackery Álvarez M.D. Admitting Physician: Zackery Álvarez M.D. Primary Care Physician: Primary Care Physician Bisi LUEVANO NOTES DATE OF SERVICE: 07/02/2016 SUBJECTIVE Mr. Stanton is a 65-year-old white male who was seen today and chart was reviewed, and case was discussed with the staff. He has been anxious, withdrawn, and reports some persistent depressive symptoms despite being on combination antidepressant and mood stabilizer. Meanwhile, he has been cooperative with treatment recommendations and has been taking the medications and tolerating them fairly well with no reported side effects. MENTAL STATUS EXAMINATION An elderly white male who was casually dressed with fair personal hygiene and appears to be in no acute distress or discomfort. He was awake and alert on interaction with intact orientation. His mood was anxious and depressed with a congruent affect. He denies any current suicidal or homicidal ideations, and also denies any auditory or visual hallucinations. His insight and judgment remain slightly impaired. TREATMENT PLAN 1. We will continue him on his current medications and treatment protocol. We will monitor his response to medication and make further adjustments as needed. 2. We will continue to follow up. Dictated by... Ayde Louis/marcelle TD: 07/02/2016 19:33 JOB #: [id number] Unit #: [id number] #: [id number] Patient: TEJAL STANTON JOSEBEKAH BASSEM NOTES Page 1 of 1 X Zackery Álvarez MD PROGRESS NOTE
--- NOTE | ~2016-06-17 | PA ---
Unit #: [id number] #: [id number] Patient: TEJAL ORTIZ [id number] [facility] [address] [place] [address] [id number] I MR#: [id number] NAME: TEJAL ORTIZ ROOM: P210 Age: 65 Sex: M Admission Date: 06/17/2016 : 1950 Date of Assessment: 06/18/2016 Attending Physician: Zackery Álvarez M.D. Admitting Physician: Zackery Álvarez M.D. Primary Care Physician: Primary Care Physician No PSYCHIATRIC ASSESSMENT DATE OF SERVICE 06/18/2016. IDENTIFYING DATA Mr. Ortiz is a 65-year-old , disabled, white male, who is a resident of [place], [place], and is known to us from previous encounter, was just discharged from my care last month and was self-referred back to the hospital. CHIEF COMPLAINT "I've been drinking daily up to 24 beers and a fifth of whiskey." HISTORY OF PRESENT ILLNESS Mr. Ortiz is a 65-year-old white male with long history of alcohol dependence, who has been treated by me several times and once again was transferred to us from [facility], where he presented acutely intoxicated and received 4 mg of Ativan before and still had elevated vitals and was seen to be in significant alcohol withdrawal syndrome with CIWA of 13 and blood pressure of 150/63 and heart rate of 96 and as such, was transferred to us. He does report history of suicidal ideations upon presentation, was unkempt, disheveled, and tremulous, and dysphoric, and endorses daily drinking up to 24 beers and a fifth of whiskey a day and upon presentation, he had a blood alcohol level of 0.345 and was assessed later once he was sober and was placed on alcohol withdrawal protocol before he was transferred to us. He does endorse increasing depression, anxiety, irritability, restlessness, poor social support system, feelings of hopelessness and helplessness, and suicidal ideation and was seen to be danger to self and therefore, recommendation for inpatient level of care was made. SUBSTANCE ABUSE HISTORY The patient reports alcohol to be his drug of choice. He reports that he has been drinking alcohol for 35 years and has been drinking 12 pack of beer and a fifth of whiskey a day and denies any other drug abuse. PAST PSYCHIATRIC HISTORY The patient has had history of multiple inpatient psychiatric and chemical dependency treatments at [facility] and review of the medical records indicate that he is supposed to be on a combination of Remeron and Seroquel, but has been noncompliant with medications. PAST MEDICAL HISTORY Hypertension, COPD. Unit #: [id number] #: [id number] Patient: TEJAL ORTIZ ALLERGIES Erythromycin and losartan. PERSONAL AND SOCIAL HISTORY A 65-year-old white male, who reports that he is , unemployed, disabled, and homeless and has poor social support system. MENTAL STATUS EXAMINATION An elderly white male who was casually dressed with fair personal hygiene, appears to be in no acute distress or discomfort. He was awake and alert on interaction with intact orientation to time, place, and person. His mood was anxious with a congruent affect. His speech was slow and restricted in content. His thought processes were disorganized with some looseness of associations and flight of ideas and paranoid ideations. He reports having suicidal ideation, but denies any homicidal ideations. His insight and judgment remain significantly impaired. DIAGNOSTIC IMPRESSION Psychiatric: Alcohol dependence, moderate and acute withdrawals; alcohol-induced mood disorder. Medical: Hypertension. Stressors: Moderate psychosocial stressors. TREATMENT PLAN 1. The patient has presented with history of substance abuse and mood disorder, and has been decompensating and will need inpatient hospitalization for detoxification, safety, and stabilization. We will start him back on his home medications. We will adjust the medications and monitor response. 2. Supportive therapy was provided to the patient. 3. Safe, structured, and nourishing environment will be provided. ESTIMATED LENGTH OF STAY 5 to 7 days. ABILITY TO HELP SELF Limited. WILLINGNESS TO HELP SELF The patient appears to be willing to help self. STRENGTHS 1. Communicative. 2. Cooperative. PROBLEMS 1. Chronic dysphoric symptoms. 2. Chronic chemical dependency. 3. Poor social support system. DISCHARGE CRITERIA This will be contingent upon the patient's ability to show resolution of his depression and anxiety and psychosis and his ability to stay safe to himself, particularly after discharge from the hospital. Dictated by... Unit #: [id number] #: [id number] Patient: TEJAL ORTIZ Ayde Louis/marcelle TD: 06/18/2016 08:24 JOB #: [id number] PSYCHIATRIC ASSESSMENT Page 1 of 1 X Zackery Álvarez MD PSYCHIATRIC ASSESSMENT
--- NOTE | ~2016-06-17 | PN ---
Unit #: [id number] #: [id number] Patient: TEJAL STANTON [id number] [facility] [address] [place] [address] [id number] MR#: [id number] NAME: TEJAL STANTON ROOM: P210 Age: 65 Sex: M Admission Date: 06/17/2016 : 1950 Attending Physician: Zackery Álvarez M.D. Admitting Physician: Zackery Álvarez M.D. Primary Care Physician: Primary Care Physician Bisi JACKSON PROGRESS NOTES DATE 07/07/2016 DISCUSSION Mr. Stanton is a 65-year-old the staff. He has been anxious, withdrawn and rather seclusive to himself. Meanwhile, he has been cooperative with treatment recommendations. MENTAL STATUS EXAM An elderly white male who was casually dressed with fair personal hygiene, appears to be in no acute distress or discomfort. He was awake and alert on interaction with intact orientation. His mood was anxious and depressed with congruent affect. He denies any suicidal or homicidal ideation. His insight and judgement remains slightly impaired. TREATMENT PLAN 1. We will continue him on his current medications and treatment protocol. We will monitor his response to the medication and make further adjustments as needed. 2. We will continue to follow up. Dictated by... Ayde Louis/oziel TD: 07/09/2016 01:33 JOB #: [id number] Unit #: [id number] #: [id number] Patient: TEJAL STANTON PROGRESS NOTES Page 1 of 1 X Zackery Álvarez MD PROGRESS NOTE
--- NOTE | ~2016-06-17 | PN ---
Unit #: [id number] #: [id number] Patient: TEJAL STANTON [id number] [facility] [address] [place] [address] [id number] I MR#: [id number] NAME: TEJAL STANTON ROOM: P210 Age: 65 Sex: M Admission Date: 06/17/2016 : 1950 Attending Physician: Zackery Álvarez M.D. Admitting Physician: Zackery Álvarez M.D. Primary Care Physician: Primary Care Physician Bisi LUEVANO NOTES DATE 07/06/2016 DISCUSSION Mr. Stanton is a 65-year-old white male who was seen today and chart was reviewed and case was discussed with the staff. He has been anxious, withdrawn and rather seclusive to himself. Meanwhile, he has been cooperative with treatment recommendations and has been taking medications and tolerating them fairly well. MENTAL STATUS EXAMINATION An elderly white male who was casually dressed with fair personal hygiene and appears to be in no acute distress or discomfort. He was awake and alert on interaction with intact orientation. His mood was anxious with congruent affect. He denies any suicidal or homicidal ideations. His insight and judgement remains slightly impaired. TREATMENT PLAN 1. Will continue on his current treatment protocol. Will monitor his response and make further adjustments as needed. 2. Will continue to follow up. Dictated by... Ayde Louis/livan TD: 07/06/2016 22:20 JOB #: [id number] [facility] PROGRESS NOTES Page 1 of 1 X Zackery Álvarez MD PROGRESS NOTE
--- NOTE | ~2016-06-17 | PN ---
Unit #: [id number] #: [id number] Patient: TEJAL STANTON [id number] [facility] [address] [place] [address] [id number] I MR#: [id number] NAME: TEJAL STANTON ROOM: P210 Age: 65 Sex: M Admission Date: 06/17/2016 : 1950 Attending Physician: Zackery Álvarez M.D. Admitting Physician: Zackery Álvarez M.D. Primary Care Physician: Primary Care Physician Bisi LUEVANO NOTES DATE June 21, 2016 DISCUSSION Mr. Stanton is a 65-year-old white male, who was seen today and chart was reviewed and the case was discussed with the staff. He has been anxious, withdrawn but has not shown any agitation or irritability, and has been calm and cooperative with the treatment recommendations, and he has been taking the medications and tolerating them fairly well with no reported side effects. MENTAL STATUS EXAMINATION An elderly white male, who was casually dressed with fair personal hygiene and appears to be in no acute distress or discomfort. He was awake and alert on interaction with intact orientation. His mood is anxious with a congruent affect. He denies any suicidal or homicidal ideations. His insight and judgment remain slightly impaired. TREATMENT PLAN 1. We will continue him on his current treatment protocol, and will monitor his response, and make further adjustments as needed. 2. We will continue to followup. Dictated by... Ayde Louis/unique TD: 06/22/2016 05:50 JOB #: [id number] Unit #: [id number] #: [id number] Patient: TEJAL STANTON [facility] BASSEM NOTES Page 1 of 1 X Zackery Álvarez MD PROGRESS NOTE
--- NOTE | ~2016-06-17 | PN ---
Unit #: [id number] #: [id number] Patient: TEJAL ORTIZ [id number] [facility] [address] [place] [address] [id number] I MR#: [id number] NAME: TEJAL ORTIZ ROOM: P210 Age: 65 Sex: M Admission Date: 06/17/2016 : 1950 Attending Physician: Zackery Álvarez M.D. Admitting Physician: Zackery Álvarez M.D. Primary Care Physician: Primary Care Physician Bisi LUEVANO NOTES DATE OF SERVICE 07/04/2016 DISCUSSION Mr. Ortiz is a 65-year-old white male who was seen today. Chart was reviewed and case was discussed with the staff. He has been anxious and withdrawn though has not shown any agitation or irritability and cooperative with treatment recommendations as he has been taking the medications and tolerating them fairly well with no reported side effects. MENTAL STATUS EXAMINATION An elderly white male who is casually dressed with fair personal hygiene, appears to be in no acute distress or discomfort. The patient was awake and alert on interaction with intact orientation. His mood is anxious and depressed with congruent affect. Her speech is slow and goal-directed. He denies any suicidal or homicidal ideations and also denies any auditory or visual hallucinations. His insight and judgment remain slightly impaired. TREATMENT PLAN 1. We will continue him on his current treatment protocol. We will monitor his response to the medications and make further adjustments as needed. 2. We will continue to follow up. Dictated by... Zackery Álvarez M.D. IAA/bzg TD: 07/05/2016 08:17 JOB #: [id number] Unit #: [id number] #: [id number] Patient: TEJAL ORTIZ JO[facility] PROGRESS NOTES Page 1 of 1 X Zackery Álvarez MD PROGRESS NOTE
--- NOTE | ~2016-06-17 | PN ---
Unit #: [id number] #: [id number] Patient: TEJAL STANTON [id number] [facility] [address] [place] [address] [id number] I MR#: [id number] NAME: TEJAL STANTON ROOM: P210 Age: 65 Sex: M Admission Date: 06/17/2016 : 1950 Attending Physician: Zackery Álvarez M.D. Admitting Physician: Zackery Álvarez M.D. Primary Care Physician: Primary Care Physician Bisi LUEVANO NOTES DATE July 08, 2016 DISCUSSION Mr. Stanton is a 65-year-old white male, who was seen today and chart was reviewed and the case was discussed with the staff. He has been anxious, withdrawn, but has not shown any agitation or irritability and has been cooperative with the treatment recommendations and has been taking the medications and tolerating them fairly well with no reported side effects. MENTAL STATUS EXAMINATION An elderly white male, who was casually dressed with fair personal hygiene and appears to be in no acute distress or discomfort. He was awake and alert on interaction with intact orientation. His mood is anxious with a congruent affect. He denies any suicidal or homicidal ideations. His insight and judgment remain slightly impaired. TREATMENT PLAN 1. We will continue him on his current medications and treatment protocol, and will monitor his response to the medications, and make further adjustments as needed. 2. We will continue to followup. Dictated by... Ayde Louis/unique TD: 07/09/2016 06:42 JOB #: [id number] Unit #: [id number] #: [id number] Patient: TEJAL STANTON JOSEBEKAH BASSEM NOTES Page 1 of 1 X Zackery Álvarez MD PROGRESS NOTE
--- NOTE | ~2016-06-17 | DS ---
Unit #: [id number] #: [id number] [facility]: [facility] [id number] [facility] [address] [place] [address] [id number] I MR#: [id number] NAME: TEJAL ORTIZ ROOM: P210 Age: 65 Sex: M Admission Date: 06/17/2016 : 1950 Discharge Date: 07/10/2016 Attending Physician: Zackery Álvarez M.D. Primary Care Physician: Primary Care Physician No DISCHARGE SUMMARY IDENTIFYING DATA Mr. Ortiz is a 65-year-old , disabled, white male, who is a resident of [place], [place] and he is known to us from previous encounter, was just discharged from my care last month and was self-referred back to the hospital. DISCHARGE DIAGNOSES Psychiatric: Alcohol dependence, moderate, in acute withdrawals; alcohol-induced mood disorder. Medical: Hypertension. Stressors: Moderate psychosocial stressors. HISTORY OF PRESENT ILLNESS Please see initial psychiatric evaluation for details. PAST PSYCHIATRIC HISTORY Please see initial psychiatric evaluation for details. PAST MEDICAL HISTORY Please see initial psychiatric evaluation for details. HOSPITAL COURSE The patient was admitted to the adult psychiatric unit at [facility] adelina Shell and was oriented to the hospital environment. Routine p.r.n. medications were initiated, and he was started on the alcohol detox protocol. He was closely monitored. However, he was seemed to be having significant anxiety, depression, and even though he was able to come out of the detox. He was having some persistent depressive symptoms with suicidal ideations, and as such, medications were adjusted and he was started on two different antidepressants and later Seroquel was added as well, and he was seemed to be doing much better and was calm and cooperative with treatment recommendations and was taking the medications regularly and was tolerating them fairly well and was able to show a decent therapeutic response, and as such, it was decided that he will be discharged home and will continue treatment on an outpatient basis. DISCHARGE MEDICATIONS Prozac 20 mg a day for depression and Remeron 15 mg at bedtime for depression. DISCHARGE CONDITION Stable. PROGNOSIS Unit #: [id number] #: [id number] Patient: TEJAL ORTIZ [facility]. Dictated by... Zackery Álvarez M.D. IAA/modl TD: 07/10/2016 07:36 JOB #: [id number] DISCHARGE SUMMARY Page 1 of 1 X Zackery Álvarez MD DISCHARGE SUMMARY
--- NOTE | ~2016-06-17 | PN ---
Unit #: [id number] #: [id number] Patient: TEJAL STANTON [id number] [facility] [address] [place] [address] [id number] MR#: [id number] NAME: TEJAL STANTON ROOM: P210 Age: 65 Sex: M Admission Date: 06/17/2016 : 1950 Attending Physician: Zackery Álvarez M.D. Admitting Physician: Zackery Álvarez M.D. Primary Care Physician: Primary Care Physician Bisi JACKSON PROGRESS NOTES DATE 06/23/2016 DISCUSSION Mr. Stanton is a 65-year-old, white male who was seen today and chart was reviewed and case was discussed with the staff. He has been anxious, withdrawn and rather seclusive to himself and reports persistent depressive symptoms. Meanwhile, he has been and participating. MENTAL STATUS EXAM Young white male who was casually dressed with fair personal hygiene, appears to be in no acute distress or discomfort. He was awake and alert on interaction with intact orientation. His mood was anxious with congruent affect. He denies any suicidal or homicidal ideation. His insight and judgement remains slightly impaired. TREATMENT PLAN 1. We will continue him on his current treatment protocol. We will monitor his response to the medication and make further adjustments as needed. 2. We will continue to follow up. Dictated by... Ayde oLuis/oziel TD: 06/25/2016 03:47 JOB #: [id number] Unit #: [id number] #: [id number] Patient: TEJAL STANTON PROGRESS NOTES Page 1 of 1 X Zackery Álvarez MD PROGRESS NOTE
--- NOTE | ~2016-06-17 | PN ---
Unit #: [id number] #: [id number] Patient: TEJAL STANTON [id number] [facility] [address] [place] [address] [id number] I MR#: [id number] NAME: TEJAL STANTON ROOM: P210 Age: 65 Sex: M Admission Date: 06/17/2016 : 1950 Attending Physician: Zackery Álvarez M.D. Admitting Physician: Zackery Álvarez M.D. Primary Care Physician: Primary Care Physician iBsi LUEVANO NOTES DATE 06/28/2016 DISCUSSION Mr. Stanton is a 65-year-old, white male who was seen today and chart was reviewed and case was discussed with the staff. He has been anxious, withdrawn and rather seclusive to himself. Meanwhile, he has been cooperative with the treatment recommendations. He has been taking the medication and tolerating them fairly well with no reported side effects. MENTAL STATUS EXAM Middle-aged white male who was casually dressed with fair personal hygiene, appears to be in no acute distress or discomfort. He was awake and alert on interaction with intact orientation. His mood was anxious with congruent affect. He denies any suicidal or homicidal ideation. His insight and judgement remains slightly impaired. TREATMENT PLAN 1. We will continue him on his current medications and treatment protocol. We will monitor his response to the medication and make further adjustments as needed. 2. We will continue to follow up. Dictated by... Ayde Louis/oziel TD: 07/01/2016 23:10 JOB #: [id number] Unit #: [id number] #: [id number] Patient: TEJAL STANTON JOSEBEKAH PROGRESS NOTES Page 1 of 1 X Zackery Álvarez MD PROGRESS NOTE
--- NOTE | ~2016-06-17 | PN ---
Unit #: [id number] #: [id number] Patient: TEJAL STANTON [id number] [facility] [address] [place] [address] [id number] I MR#: [id number] NAME: TEJAL STANTON ROOM: P210 Age: 65 Sex: M Admission Date: 06/17/2016 : 1950 Attending Physician: Zackery Álvarez M.D. Admitting Physician: Zackery Álvarez M.D. Primary Care Physician: Primary Care Physician Bisi LUEVANO NOTES DATE July 05, 2016 DISCUSSION Mr. Stanton is a 65-year-old white male, who was seen today and chart was reviewed and the case was discussed with the staff. He has been anxious, withdrawn, and rather seclusive to himself. Meanwhile, he has been cooperative with the treatment recommendations and he has been taking the medications and tolerating them fairly well with no side effects. MENTAL STATUS EXAMINATION An elderly white male, who was casually dressed with fair personal hygiene and appears to be in no acute distress or discomfort. He was awake and alert on interaction with intact orientation. His mood is anxious with a congruent affect. His speech is slow and goal-directed. He denies any suicidal or homicidal ideations. His insight and judgment remain slightly impaired. TREATMENT PLAN 1. We will continue him on his current treatment protocol, and will monitor his response to the medications, and make further adjustments as needed. 2. We will continue to followup. Dictated by... Ayde Louis/unique TD: 07/06/2016 08:33 JOB #: [id number] Unit #: [id number] #: [id number] Patient: TEJAL STANTON JOSEBEKAH PROGRESS NOTES Page 1 of 1 X Zackery Álvarez MD PROGRESS NOTE
--- NOTE | ~2016-06-17 | PN ---
Unit #: [id number] #: [id number] Patient: IGOR STANTON [id number] [facility] [address] [place] [address] [id number] I MR#: [id number] NAME: IGOR STANTON ROOM: P210 Age: 65 Sex: M Admission Date: 06/17/2016 : 1950 Attending Physician: Zackery Álvarez M.D. Admitting Physician: Zackery Álvarez M.D. Primary Care Physician: Primary Care Physician Bisi JACKSON PROGRESS NOTES DATE 06/30/2016 DISCUSSION Mr. Igor Stanton is a 65-year-old white male dressed in hospital attire seen on 06/30/2016. The patient reported still feeling very sad depressed but denied any suicidal ideation, feeling of hopelessness, worthless but reports program is helping him. The patient's vital signs 97.4, 55, 135/84. Complete review of systems unremarkable. MENTAL STATUS EXAMINATION General appearance, the patient dressed casually in hospital attire. Attention span and concentration fair. Oriented to place and person. Mood and affect was sad, dysphoric, flat affect. Speech regular rate. Thought process goal directed. The patient denied any thoughts of harming self or others or any psychotic symptoms. Recent and remote memory poor. Insight and judgement poor. DIAGNOSES Alcohol use disorder severe Mood disorder NOS History of hypertension COPD ASSESSMENT/PLAN Advise to continue with current medication and therapeutic protocol. If needed consider further adjustment of medication. Dictated by... Ayde Covington/oziel TD: 07/03/2016 04:42 JOB #: [id number] Unit #: [id number] #: [id number] Patient: IGOR STANTON JOSEBEKAH PROGRESS NOTES Page 1 of 1 X Carl Zimmerman MD PROGRESS NOTE
--- NOTE | ~2016-06-17 | PN ---
Unit #: [id number] #: [id number] Patient: TEJAL STANTON [id number] [facility] [address] [place] [address] [id number] I MR#: [id number] NAME: TEJAL STANTON ROOM: P210 Age: 65 Sex: M Admission Date: 06/17/2016 : 1950 Attending Physician: Zackery Álvarez M.D. Admitting Physician: Zackery Álvarez M.D. Primary Care Physician: Primary Care Physician Bisi LUEVANO NOTES DATE OF SERVICE: 06/29/2016 SUBJECTIVE Mr. Stanton is a 65-year-old white male, who was seen today and chart was reviewed and the case was discussed with the staff. He has been anxious and withdrawn, though has not shown any agitation or irritability and has been cooperative with the treatment recommendations and has been taking the medications and tolerating them fairly well and reports feeling somewhat better on his depression and sleep issues. MENTAL STATUS EXAMINATION An elderly white male, who was casually dressed with fair personal hygiene, appears to be in no acute distress or discomfort. He was awake and alert on interaction with intact orientation. His mood was anxious with a congruent affect. He denies any suicidal or homicidal ideations. His insight and judgment remain slightly impaired. TREATMENT PLAN 1. We will continue him on his current treatment protocol. We will monitor his response to the medications and make further adjustments as needed. 2. We will continue to follow up. Dictated by... Ayde Louis/marcelle TD: 06/29/2016 17:46 JOB #: [id number] [facility] PROGRESS NOTES Page 1 of 1 X Zackery Álvarez MD PROGRESS NOTE
--- NOTE | ~2016-06-17 | HP ---
Unit #: [id number] #: [id number] Patient: IGOR STANTON [id number] [place] [address] [id number] I MR#: [id number] NAME: IGOR STANTON ROOM: P210 Age: 65 Sex: M Admission Date: 06/17/2016 : 1950 Attending Physician: Zackery Álvarez M.D. Admitting Physician: Zackery Álvarez M.D. Primary Care Physician: Primary Care Physician No HISTORY AND PHYSICAL HISTORY OF PRESENT ILLNESS Igor is a 65 year old admitted to [address] [place] [address] because of his continued abuse of alcohol. PAST MEDICAL HISTORY 1. Long history of alcohol abuse 2. High blood pressure 3. COPD PAST SURGICAL HISTORY 1. Cholecystectomy 2. T & A ALLERGIES Losartan, Z-Pratik. SOCIAL HISTORY Smokes one pack per day. Drinks a fifth of liquor on a daily basis and denied illicit drug use. FAMILY HISTORY Medically noncontributory. REVIEW OF SYSTEMS CONSTITUTIONAL: No fever or chills. HEENT: Denies any sore throat, ear pain or runny nose. CARDIOVASCULAR: Denies chest pain, irregular heart rhythm or palpitations. CHEST: Denies shortness of breath or cough. No hemoptysis. GASTROINTESTINAL: Denies nausea, vomiting, diarrhea or chronic constipation. ENDOCRINE: Denies history of increased thirst or urination. No recent significant weight loss or gain. GENITOURINARY: Denies dysuria, frequency, or hematuria. SKIN: Denies any rashes. HEMATOLOGIC: Denies history of increased bleeding or bruising. MUSCULOSKELETAL: Denies any hot, swollen joints. No generalized muscle pain. NEUROLOGIC: Denies problems with vision or speech. No frequent, severe headaches. No numbness, tingling or weakness in any extremities. Denies loss of bladder or bowel control. CURRENT MEDICATIONS Unit #: [id number] #: [id number] Patient: IGOR STANTON Detox protocol PHYSICAL EXAMINATION GENERAL: Alert, well-nourished, in no apparent distress. VITAL SIGNS: Blood pressure 155/96, heart rate 80, respirations 16, temperature 98.6. WEIGHT: 180 pounds. HEIGHT: 5'9". SKIN: Warm and dry without rash or lesion. HEENT: Normocephalic. TMs not viewed. Oral and nasal passages clear. Conjunctivae clear. Pupils equal, round and reactive to light and accommodation. Extraocular movements intact. NECK: Supple without lymphadenopathy or thyromegaly. HEART: Regular rate and rhythm without murmur. LUNGS: Clear. ABDOMEN: Soft, nontender. : Not done. EXTREMITIES: No evidence of cyanosis, clubbing or edema. Moves all extremities without focal deficit. NEUROLOGICAL: Grossly within normal limits. Cranial Nerves: II: Visual porter are intact. III, IV AND : Extraocular movements are intact. Pupils are equal, round and reactive to light. V: Facial sensation is grossly normal. VII: Facial movements and expression are normal. VIII: Auditory acuity grossly intact. IX, X: Uvula is midline. Phonation is normal. XI: Patient shrugs shoulders and turns head normally. XII: Tongue protrudes in the midline. Sensory and Motor Function: Sensory and motor sensation is grossly normal. Motor: moves all extremities well. Coordination: Gait is normal. Deep Tendon Reflexes: Intact. IMPRESSION Psychiatric admission RECOMMENDATIONS PSYCHIATRIC: Per psychiatrist. MEDICAL: I see no contraindications to participating in facility's activities. MEDICAL PROGNOSIS Good. MEDICAL CONDITION Stable. Dictated by... Marlen Ceballos PBrandanABrandan-Rafael. for Ayde Blackmon/oziel TD: 06/18/2016 22:46 JOB #: [id number] Unit #: [id number] #: [id number] Patient: IGOR STANTON HISTORY AND PHYSICAL Page 1 of 1 X Marlen Ceballos X HISTORY AND PHYSICAL
--- NOTE | ~2016-06-17 | PN ---
Unit #: [id number] #: [id number] Patient: TEJAL ORTIZ [id number] [facility] [address] [place] [address] [id number] I MR#: [id number] NAME: TEJAL ORTIZ ROOM: P210 Age: 65 Sex: M Admission Date: 06/17/2016 : 1950 Attending Physician: Zackery Álvarez M.D. Admitting Physician: Zackery Álvarez M.D. Primary Care Physician: Primary Care Physician Bisi LUEVANO NOTES DATE OF SERVICE 06/26/2016 DISCUSSION Mr. Ortiz is a 65-year-old white male who was seen today. Chart was reviewed and case was discussed with the staff. He has been anxious, withdrawn, and has been complaining of persistent depressive symptom. Meanwhile, he has been taking the medications and tolerating them fairly well with no reported side effects. MENTAL STATUS EXAMINATION An elderly white male who is casually dressed with fair personal hygiene, appears to be in no acute distress or discomfort. The patient was awake and alert on interaction with intact orientation. His mood is anxious with a congruent affect. He denies any suicidal or homicidal ideations. His insight and judgment remain slightly impaired. TREATMENT PLAN 1. We will continue him on his current medications and treatment protocol. We will monitor his response to the medications and make further adjustments as needed. 2. We will continue to follow up. Dictated by... Zackery Álvarez M.D. IAA/bzg TD: 06/27/2016 14:54 JOB #: [id number] Unit #: [id number] #: [id number] Patient: TEJAL ORTIZ JOSEBEKAH BASSEM NOTES Page 1 of 1 X Zackery Álvarez MD PROGRESS NOTE
--- NOTE | ~2016-06-17 | PN ---
Unit #: [id number] #: [id number] Patient: TEJLA STANTON [id number] [facility] [address] [place] [address] [id number] I MR#: [id number] NAME: TEJAL STANTON ROOM: P210 Age: 65 Sex: M Admission Date: 06/17/2016 : 1950 Attending Physician: Zackery Álvarez M.D. Admitting Physician: Zackery Álvarez M.D. Primary Care Physician: Primary Care Physician Bisi LUEVANO NOTES DATE OF SERVICE: 07/09/2016 SUBJECTIVE Mr. Stanton is a 65-year-old white male who was seen today and chart was reviewed, and case was discussed with the staff. He has been anxious, withdrawn, and rather seclusive to himself. Meanwhile, he has been cooperative with treatment recommendations and has been taking the medications and tolerating them fairly well with no reported side effects. MENTAL STATUS EXAMINATION An elderly white male who was casually dressed with fair personal hygiene, appears to be in no acute distress or discomfort. He was awake and alert on interaction with intact orientation. His mood was anxious with a congruent affect. He denies any suicidal or homicidal ideations. His insight and judgment remain slightly impaired. TREATMENT PLAN 1. We will continue him on his current medications and treatment protocol. We will monitor his response to medications and make further adjustments as needed. 2. We will continue to follow up. Dictated by... Ayde Louis/mainorl TD: 07/09/2016 21:23 JOB #: [id number] [facility] PROGRESS NOTES Page 1 of 1 X Zackery Álvarez MD PROGRESS NOTE
--- NOTE | ~2016-06-17 | PN ---
Unit #: [id number] #: [id number] Patient: TEJAL STANTON [id number] [facility] [address] [place] [address] [id number] MR#: [id number] NAME: TEJAL STANTON ROOM: P210 Age: 65 Sex: M Admission Date: 06/17/2016 : 1950 Attending Physician: Zackery Álvarez M.D. Admitting Physician: Zackery Álvarez M.D. Primary Care Physician: Primary Care Physician Bisi LUEVANO NOTES DATE 06/20/2016 DISCUSSION Mr. Stanton is a 65-year-old, white male who was seen today and chart was reviewed and case was discussed with the staff. She has been anxious, withdrawn though has not shown any agitation, irritability or behavioral problems and has been cooperative with treatment recommendations. He has been taking medications and tolerating them fairly well with no reported side effects. MENTAL STATUS EXAM An elderly white male who was casually dressed with fair personal hygiene, appears to be in no acute distress or discomfort. He was awake and alert on interaction with intact orientation. His mood was anxious with congruent affect. His speech was slow and restricted in content. He denies any suicidal or homicidal ideation. His insight and judgement remains slightly impaired. TREATMENT PLAN 1. We will continue him on his current medications and treatment protocol. We will monitor his response and make further adjustments as needed. 2. We will continue to follow up. Dictated by... Ayde Louis/oziel TD: 06/20/2016 23:53 JOB #: [id number] Unit #: [id number] #: [id number] Patient: TEJAL STANTON JOSEBEKAH BASSEM NOTES Page 1 of 1 X Zackery Álvarez MD PROGRESS NOTE
--- NOTE | ~2016-06-17 | PN ---
Unit #: [id number] #: [id number] Patient: TEJAL ORTIZ [id number] [facility] [address] [place] [address] [id number] MR#: [id number] NAME: TEJAL ORTIZ ROOM: P210 Age: 65 Sex: M Admission Date: 06/17/2016 : 1950 Attending Physician: Zackery Álvarez M.D. Admitting Physician: Ayde Louis PROGRESS NOTES DATE OF SERVICE: 07/03/2016 SUBJECTIVE Mr. Ortiz is a 65-year-old white male who was seen today and chart was reviewed, and case was discussed with the staff. He has been anxious, withdrawn, and rather seclusive to himself. Meanwhile, he has been cooperative with treatment recommendation and has been taking medications and tolerating them fairly well with no reported side effects. MENTAL STATUS EXAMINATION An elderly white male who was casually dressed with fair personal hygiene, appears to be in no acute distress or discomfort. He was awake and alert on interaction with intact orientation. His mood was anxious with a congruent affect. He denies any suicidal or homicidal ideations. His insight and judgment remain slightly impaired. TREATMENT PLAN 1. We will continue him on his current medications and treatment protocol. We will monitor his response to medications and make further adjustments as needed. 2. We will continue to follow up. Dictated by... Ayde Louis/mainorl TD: 07/03/2016 21:11 JOB #: [id number] [facility] PROGRESS NOTES Page 1 of 1 X Zackery Álvarez MD PROGRESS NOTE
--- NOTE | ~2016-06-17 | PN ---
Unit #: [id number] #: [id number] Patient: TEJLA STANTON [id number] [facility] [address] [place] [address] [id number] I MR#: [id number] NAME: TEJAL STANTON ROOM: P210 Age: 65 Sex: M Admission Date: 06/17/2016 : 1950 Attending Physician: Zackery Álvarez M.D. Admitting Physician: Zackery Álvarez M.D. Primary Care Physician: Primary Care Physician Bisi LUEVANO NOTES DATE 06/24/2016 DISCUSSION Mr. Stanton is a 65-year-old, white male with alcohol dependence and mood disorder who was seen today and chart was reviewed and case was discussed with the staff. He appears to be doing somewhat better as he was smiling and had positive body language and does appear to be showing improvement in his depression. He has been taking medications and tolerating them fairly well with no reported side effects. MENTAL STATUS EXAM An elderly white male who was casually dressed with fair personal hygiene, appears to be in no acute distress or discomfort. He was awake and alert on interaction with intact orientation. His mood was anxious with congruent affect. He denies any suicidal or homicidal ideation. His insight and judgement remains slightly impaired. TREATMENT PLAN 1. We will continue him on his current medications and treatment protocol. We will monitor his response and make further adjustments as needed. 2. We will continue to follow up. Dictated by... Ayde Louis/oziel TD: 06/25/2016 23:09 JOB #: [id number] Unit #: [id number] #: [id number] Patient: TEJAL STANTON JOSEBEKAH PROGRESS NOTES Page 1 of 1 X Zackery Álvarez MD PROGRESS NOTE
--- NOTE | ~2016-06-17 | PN ---
Unit #: [id number] #: [id number] Patient: TEJAL ORTIZ [id number] [facility] [address] [place] [address] [id number] I MR#: [id number] NAME: TEJAL ORTIZ ROOM: P210 Age: 65 Sex: M Admission Date: 06/17/2016 : 1950 Attending Physician: Zackery Álvarez M.D. Admitting Physician: Zackery Álvarez M.D. Primary Care Physician: Primary Care Physician Bisi LUEVANO NOTES DATE OF SERVICE 06/22/2016 DISCUSSION Mr. Ortiz is a 65-year-old white male with substance abuse and mood disorder who was seen today. Chart was reviewed and case was discussed with the staff. He has been anxious, withdrawn, rather seclusive to himself. Meanwhile, he has been cooperative with the treatment recommendations and has been taking the medications and tolerating them fairly well with no reported side effects. MENTAL STATUS EXAMINATION An elderly white male who is casually dressed with fair personal hygiene, appears to be in no acute distress or discomfort. He was awake and alert with impaired attention and concentration. Mood is anxious with congruent affect. He denies any suicidal or homicidal ideations. His insight and judgment remain slightly impaired. TREATMENT PLAN 1. We will continue him on his current treatment protocol. We will monitor his response to the medications and make further adjustments as needed. 2. We will continue to follow up. Dictated by... Zackery Álvarez M.D. IAA/bzg TD: 06/23/2016 12:25 JOB #: [id number] Unit #: [id number] #: [id number] Patient: TEJAL ORTIZ MANUEL LUEVANO NOTES Page 1 of 1 X Zackery Álvarez MD PROGRESS NOTE
--- NOTE | ~2016-06-17 | PN ---
Unit #: [id number] #: [id number] Patient: TEJAL STANTON [id number] [facility] [address] [place] [address] [id number] I MR#: [id number] NAME: TEJAL STANTON ROOM: P210 Age: 65 Sex: M Admission Date: 06/17/2016 : 1950 Attending Physician: Zackery Álvarez M.D. Admitting Physician: Zackery Álvarez M.D. Primary Care Physician: Primary Care Physician Bisi LUEVANO NOTES DATE 06/25/2016 DISCUSSION Mr. Stanton is a 65-year-old, white male who was seen today and chart was reviewed and case was discussed with the staff. He reports not feeling good and has been complaining of poor sleep, anxiety and depressive symptoms and appears to be showing some positive impairment as he keeps on stating that he is not getting any depression medicine and I remind him that I have him on two antidepressants including Prozac and Remeron and that I also have him on Seroquel at night to help with mood and sleep and he makes promise that he did not get any medicine last night but when I checked, the nursing has given him medications and signed off on it and he repeats the same statement all over again the next day. MENTAL STATUS EXAM An elderly male who was casually dressed with marginal personal hygiene appears to be in no acute distress or discomfort. He was awake and alert with impaired attention and concentration. His mood was anxious and depressed with a congruent affect. His speech was fluent and restricted in content. He denies any suicidal or homicidal ideation. His insight and judgement remains significantly impaired. TREATMENT PLAN 1. We will continue him on his current medications and treatment protocol. We will monitor his response to the medication and make further adjustments as needed. 2. We will continue to follow up. Dictated by... Ayde Louis/oziel TD: 06/26/2016 23:24 JOB #: [id number] Unit #: [id number] #: [id number] Patient: TEJAL STANTON BASSEM NOTES Page 1 of 1 X Zackery Álvarez MD NOTE
--- NOTE | ~2016-06-17 | PN ---
Unit #: [id number] #: [id number] Patient: TEJAL ORTIZ [id number] [facility] [address] [place] [address] [id number] I MR#: [id number] NAME: TEJAL ORTIZ ROOM: P210 Age: 65 Sex: M Admission Date: 06/17/2016 : 1950 Attending Physician: Zackery Álvarez M.D. Admitting Physician: Zackery Álvarez M.D. Primary Care Physician: Primary Care Physician Bisi LUEVANO NOTES DATE OF SERVICE 06/19/2016 DISCUSSION Mr. Ortiz is a 65-year-old white male who was seen today. Chart was reviewed and case was discussed with the staff. He has been anxious and withdrawn though has not shown any agitation or irritability and has been cooperative with treatment recommendations as he has been taking the medications and tolerating them fairly well with no reported side effects. MENTAL STATUS EXAMINATION An elderly white male who is casually dressed with fair personal hygiene, appears to be in slight distress and discomfort. He was awake and alert with impaired attention and concentration. His mood is anxious with congruent affect. Speech is slow and restricted in content. He denies any suicidal or homicidal ideations. His insight and judgment remain significantly impaired. TREATMENT PLAN 1. We will continue him on his current medications and treatment protocol. We will monitor his response to the medications and make further adjustments as needed. 2. We will continue to follow up. Dictated by... Zackery Álvarez M.D. IAA/bzg TD: 06/20/2016 10:34 JOB #: [id number] Unit #: [id number] #: [id number] Patient: TEJAL ORTIZ JOSEBEKAH PROGRESS NOTES Page 1 of 1 X Zackery Álvarez MD PROGRESS NOTE
--- NOTE | ~2016-06-17 | PN ---
Unit #: [id number] #: [id number] Patient: IGOR STANTON [id number] [facility] [address] [place] [address] [id number] I MR#: [id number] NAME: IGOR STANTON ROOM: [facility] Age: 65 Sex: M Admission Date: 06/17/2016 : 1950 Attending Physician: Zackery Álvarez M.D. Admitting Physician: Ayde Louis PROGRESS NOTES DATE OF SERVICE: 07/01/2016 DISCUSSION Igor Stanton is a 65-year-old male, seen on 07/01/2016. The patient interviewed, chart reviewed, and obtained information from nursing staff. The patient's vital signs; temperature 98.4, pulse 55, and blood pressure 102/64. The patient was isolative, flat affect, sad, dysphoric, anxious. The patient denied any complaints, able to maintain safe behavior. Complete review of systems unremarkable. MENTAL STATUS EXAMINATION General appearance, the patient dressed casually. Attention span and concentration, fair. Oriented in time, place, and person. Mood and affect were labile. Speech, monotone. Thought process, concrete. The patient denied any thoughts of harming self or others, but guarded. Recent and remote memory, poor. Insight and judgment, poor. DIAGNOSIS Bipolar mood disorder, not otherwise specified. ASSESSMENT AND PLAN Advised to continue with current combination of Seroquel, Remeron, Prozac. If needed, consider further adjustment of medication. Dictated by... Ayde Covington/marcelle TD: 07/01/2016 13:19 JOB #: [id number] Unit #: [id number] #: [id number] Patient: IGOR STANTON JOSEBEKAH BASSEM NOTES Page 1 of 1 X Carl Zimmerman MD PROGRESS NOTE
--- NOTE | ~2016-06-17 | PN ---
Unit #: [id number] #: [id number] Patient: TEJAL ORTIZ [id number] [facility] [address] [place] [address] [id number] I MR#: [id number] NAME: TEJAL ORTIZ ROOM: P210 Age: 65 Sex: M Admission Date: 06/17/2016 : 1950 Attending Physician: Zackery Álvarez M.D. Admitting Physician: Zackery Álavrez M.D. Primary Care Physician: Primary Care Physician Bisi LUEVANO NOTES DATE OF SERVICE 06/27/2016 DISCUSSION Mr. Ortiz is a 65-year-old white male who was seen today. Chart was reviewed and case was discussed with the staff. He has been anxious and withdrawn though has not shown any agitation or irritability and has been cooperative with treatment recommendations as he has been taking the medications and tolerating them fairly well with no reported side effects. MENTAL STATUS EXAMINATION An elderly white male who is casually dressed with fair personal hygiene and appears to be in no acute distress or discomfort. The patient was awake and alert on interaction with intact orientation. His mood is anxious with congruent affect. He denies any suicidal or homicidal ideation. His insight and judgment remain slightly impaired. TREATMENT PLAN 1. We will continue him on his current treatment protocol. We will monitor his response to the medications and make further adjustments as needed. 2. We will continue to follow up. Dictated by... Zackery Álvarez M.D. IAA/bzg TD: 06/29/2016 08:16 JOB #: [id number] Unit #: [id number] #: [id number] Patient: TEJAL ORTIZ JOSEBEKAH PROGRESS NOTES Page 1 of 1 X Zackery Álvarez MD PROGRESS NOTE
--- NOTE | ~2016-06-17 | A ---
[facility] Nutrition Therapy DATE: 06/29/16 Patient: TEJAL ROMY Physician: AFAIRF Address: [address] [place], [place] [address] Room/Bed: [address], Zip: [place] [address] Admit Date: 06/17/16 Date of : [birth year] Height: 5 9 Weight: [phone] NUTRITIONAL ASSESSMENT: REASON: LOS Admitting Dx: 65 y/o male admitted with ETOH abuse and SI PMH: Long hx ETOH abuse, HTN, COPD, 1 ppd smoker Anthropometrics: Ht: 69", Wt: 180 lbs, BMI: 26 (overweight), past weights: 180-206 lbs Labs: AST 44 Meds: Milk of Mg, Mag-al, MVI, psych meds noted Assessment: Chart reviewed, events noted. H&P and progress notes reviewed, patient undergoing ETOH detox, has long hx of ETOH abuse. He is on a regular diet, large portion entree requested yesterday. RD previously assessd on 05/16/16 for LOS, same admitting dx- note reviewed. Patient is retired on social security, however he is homeless with little family support. He reported fair appetite upon admission and was unsure if he'd had any changes in weight, appetite has been consistently good since admission. 0 points scored on the malnutrition risk screen. See RD recs below. Dx: No nutrition diagnosis Intervention: Approve large entree @ dinner only, add Thiamine and Folic acid Monitoring, Evaluation and Goals: 1. PO intake 50-100% of meals. 2. Prevent unintentional weight loss. Recommendations: 1. Continue regular diet. RD approves large entree request for dinner only based on the patient's BMI (clinically overweight). 2. Encourage fluids. 3. Please add Thiamine and Folic acid to daily medication regimen per detox protocol. 4. Please consult RD with any further nutritional needs. Not @ nutritional risk [facility] Nutrition Therapy DATE: 06/29/16 Patient: TEJAL STANTON Physician: AFAIRF Address: [address] [place], [place] [address] Room/Bed: [address], Zip: [place] [address] Admit Date: 06/17/16 Date of : [birth year] Height: 5 9 Weight: [phone] Respectfully, Dedra Bingham RD, LD [facility] cc: client file
[2016-06-18 09:51] LABS: THYROID STIMULATING HORMONE 2.18 uIU/ml (0.34-5.60)
[2016-06-18 09:54] LABS: ALBUMIN SERUM 3.6 g/dL (3.5-5.0); BILIRUBIN,TOTAL 1.5 mg/dL (0.2-2.0); BUN/CREATININE RATIO 12.5; CALCIUM SERUM 8.7 mg/dL (8.4-10.2); CREATININE SERUM 0.8 mg/dL (0.6-1.4); GLOM FILT RATE Estimated 93.8 mL/min (>60); POTASSIUM 3.6 mmol/L (3.5-5.1); PROTEIN TOTAL SERUM 6.4 g/dL (6.0-8.3)
[2016-06-18 09:58] LABS: FREE THYROXIN (T4) 0.73 ng/dL (0.58-1.64)
== END 2016-07-10 10:04 | DRG 897 ==
LOC: P2S 20:35
PROVIDERS: Psychiatry & Neurology Psychiatry
PROC: HZ2ZZZZ Detoxification Services for Substance Abuse Treatment (ICD-10-PCS; principal; 2016-06-17)
DX: F10.230 Alcohol dependence with withdrawal, uncomplicated (principal); R45.851 Suicidal ideations; J44.9 Chronic obstructive pulmonary disease, unspecified; I10 Essential (primary) hypertension; Z59.0 Homelessness; F10.24 Alcohol dependence with alcohol-induced mood disorder; Z88.1 Allergy status to other antibiotic agents; Z88.8 Allergy status to other drugs, medicaments and biological substances; Z90.49 Acquired absence of other specified parts of digestive tract; F17.210 Nicotine dependence, cigarettes, uncomplicated; F31.9 Bipolar disorder, unspecified
CPT/HCPCS: 80053; 84439; 84443; 86592

== ENCOUNTER 2016-08-10 16:50 | Inpatient (IN) | payer MEDICARE ==
--- NOTE | ~2016-08-10 | PN ---
Unit #: [id number] #: [id number] Patient: TEJAL STANTON [id number] [facility] [address] [place] [address] [id number] I MR#: [id number] NAME: TEJAL STANTON ROOM: [facility] Age: 65 Sex: M Admission Date: 08/10/2016 : 1950 Attending Physician: Zackery Álvarez M.D. Admitting Physician: Zackery Álvarez M.D. Primary Care Physician: Primary Care Physician Bisi LUEVANO NOTES DATE 08/22/2016 DISCUSSION Mr. Stanton is a 65-year-old, white male who was seen today and chart was reviewed and case was discussed with the staff. He has been anxious, withdrawn and rather seclusive to himself. Meanwhile, he has been cooperative with treatment recommendations as he has been taking medications and tolerating them fairly well with no reported side effects. MENTAL STATUS EXAM An elderly white male who was casually dressed with fair personal hygiene, appears to be in no acute distress or discomfort. He was awake and alert on interaction with intact orientation. His mood was anxious with congruent affect. His speech was slow and goal directed. He denies any suicidal or homicidal ideation. Also, denies any auditory or visual hallucinations. His insight and judgement remains slightly impaired. TREATMENT PLAN 1. We will continue him on his current medications and treatment protocol. We will monitor his response to the medications and make further adjustments as needed. 2. We will continue to follow up. Dictated by... Ayde Louis/oziel TD: 08/23/2016 00:04 JOB #: [id number] Unit #: [id number] #: [id number] Patient: TEJAL STANTON JOSEBEKAH PROGRESS NOTES Page 1 of 1 X Zackery Álvarez MD PROGRESS NOTE
--- NOTE | ~2016-08-10 | PN ---
Unit #: [id number] #: [id number] Patient: TEJAL STANTON [id number] [facility] [address] [place] [address] [id number] I MR#: [id number] NAME: TEJAL STANTON ROOM: [facility] Age: 65 Sex: M Admission Date: 08/10/2016 : 1950 Attending Physician: Zackery Álvarez M.D. Admitting Physician: Zackery Álvarez M.D. Primary Care Physician: Primary Care Physician Bisi JACKSON PROGRESS NOTES DATE OF SERVICE: 08/20/2016 SUBJECTIVE Mr. Echavarria is a 65-year-old white male, who was seen today and chart was reviewed, and case was discussed with the staff. He has been anxious, withdrawn, rather seclusive to himself, and I discussed options of discharge planning and he was uncomfortable stating that he does not feel ready and that he is still very depressed. Meanwhile, he has been taking medications and tolerating them fairly well with no reported side effects. MENTAL STATUS EXAMINATION An elderly white male, who was casually dressed with fair personal hygiene, appears to be in no acute distress or discomfort. He was awake and alert with intact orientation. His mood was anxious with a congruent affect. His speech was slow and goal directed. He denies any suicidal or homicidal ideations. His insight and judgment remain slightly impaired. TREATMENT PLAN 1. We will continue him on his current medications and treatment protocol. We will monitor his response to medications and make further adjustments as needed. 2. We will continue to follow up. Dictated by... Ayde Louis/marcelle TD: 08/21/2016 06:56 JOB #: [id number] [facility] PROGRESS NOTES Page 1 of 1 X Zackery Álvarez MD PROGRESS NOTE
--- NOTE | ~2016-08-10 | PN ---
Unit #: [id number] #: [id number] Patient: TEJAL ORTIZ [id number] [facility] [address] [place] [address] [id number] I MR#: [id number] NAME: TEJAL ORTIZ ROOM: [facility] Age: 65 Sex: M Admission Date: 08/10/2016 : 1950 Attending Physician: Zackery Álvarez M.D. Admitting Physician: Zackery Álvarez M.D. Primary Care Physician: Primary Care Physician Bisi LUEVANO NOTES DATE OF SERVICE 08/18/2016 DISCUSSION Mr. Ortiz is a 65-year-old white male who was seen today. Chart was reviewed and case was discussed with the staff. He has been anxious, withdrawn, and rather seclusive to himself. Meanwhile, he has been cooperative with the treatment recommendations and has been taking the medications and tolerating them fairly well with no reported side effects. MENTAL STATUS EXAMINATION An elderly white male who is casually dressed with fair personal hygiene, appears to be in no acute distress or discomfort. He was awake and alert on interaction with intact orientation. His mood is anxious with congruent affect. He denies any suicidal or homicidal ideations. His insight and judgment remain slightly impaired. TREATMENT PLAN 1. We will continue him on his current medications and treatment protocol. We will monitor his response and make further adjustments as needed. 2. We will continue to follow up. Dictated by... Zackery Álvarez M.D. IAA/bzg TD: 08/18/2016 13:34 JOB #: [id number] [facility] PROGRESS NOTES Page 1 of 1 X Zackery Álvarez MD PROGRESS NOTE
--- NOTE | ~2016-08-10 | PN ---
Unit #: [id number] #: [id number] Patient: TEJAL STANTON [id number] [facility] [address] [place] [address] [id number] I MR#: [id number] NAME: TEJAL STANTON ROOM: [facility] Age: 65 Sex: M Admission Date: 08/10/2016 : 1950 Attending Physician: Zackery Álvarez M.D. Admitting Physician: Zackery Álvarez M.D. Primary Care Physician: Primary Care Physician Bisi JACKSON PROGRESS NOTES DATE OF SERVICE: 08/19/2016 SUBJECTIVE Mr. Stanton is a 65-year-old while male, who was seen today and chart was reviewed, and case was discussed with the staff. He has been anxious, withdrawn, rather seclusive to himself. Meanwhile, he has been cooperative with the treatment recommendations and has been taking medications and tolerating them fairly well with no reported side effects. MENTAL STATUS EXAMINATION An elderly young white male who was casually dressed with fair personal hygiene, appears to be in no acute distress or discomfort. He was awake and alert on interaction with intact orientation. His mood was anxious with a congruent affect. His speech was slow and goal directed. He denies any suicidal or homicidal ideations. His insight and judgment remain slightly impaired. TREATMENT PLAN 1. We will continue on his current treatment protocol. We will monitor his response and make further adjustments as needed. 2. We will continue to follow up. Dictated by... Ayde Louis/marcelle TD: 08/21/2016 01:32 JOB #: [id number] [facility] PROGRESS NOTES Page 1 of 1 X Zackery Álvarez MD PROGRESS NOTE
--- NOTE | ~2016-08-10 | PN ---
Unit #: [id number] #: [id number] Patient: TEJAL STANTON [id number] [facility] [address] [place] [address] [id number] I MR#: [id number] NAME: TEJAL STANTON ROOM: [facility] Age: 65 Sex: M Admission Date: 08/10/2016 : 1950 Attending Physician: Zackery Álvarez M.D. Admitting Physician: Zackery Álvarez M.D. Primary Care Physician: Primary Care Physician Bisi JACKSON PROGRESS NOTES DATE 08/17/2016 DISCUSSION Mr. Stanton is a 65-year-old white male who was seen today and chart was reviewed and case was discussed with the staff. He has been anxious, withdrawn, seclusive to himself and reports persistent depressive symptoms. Meanwhile, he has been cooperative with treatment recommendations and has been taking medications and tolerating them fairly well with no reported side effects. MENTAL STATUS EXAMINATION An elderly white male who was casually dressed with fair personal hygiene and appears to be in no acute distress or discomfort. He was awake and alert on interaction with intact orientation. His mood was anxious and depressed with congruent affect. He reports having suicidal ideations and denies any homicidal ideations. His insight and judgement remains slightly impaired. TREATMENT PLAN 1. We will continue his current medications and treatment protocol and will monitor his response to the medications and make further adjustments as needed. 2. Will continue to follow up. Dictated by... Ayde Louis/livan TD: 08/17/2016 15:44 JOB #: [id number] Unit #: [id number] #: [id number] Patient: TEJAL STANTON PROGRESS NOTES Page 1 of 1 X Zackery Álvarez MD PROGRESS NOTE
--- NOTE | ~2016-08-10 | PN ---
Unit #: [id number] #: [id number] Patient: TEJAL ORTIZ [id number] [facility] [address] [place] [address] [id number] I MR#: [id number] NAME: TEJAL ORTIZ ROOM: [facility] Age: 65 Sex: M Admission Date: 08/10/2016 : 1950 Attending Physician: Zackery Álvarez M.D. Admitting Physician: Ayde Louis PROGRESS NOTES DATE OF SERVICE: 08/11/2016 SUBJECTIVE Mr. Ortiz is a 65-year-old white male who was seen today and chart was reviewed, and case was discussed with the staff. He has been anxious, withdrawn, depressed, seclusive to himself and reports himself to being in distress and discomfort, and also expressed feelings of hopelessness and suicidal ideations. Meanwhile, he has not shown any agitation or aggression. MENTAL STATUS EXAMINATION An elderly white male who was casually dressed with fair personal hygiene, appears to be in no acute distress or discomfort. He was awake and alert on interaction with intact orientation. His mood was anxious with a congruent affect. He denies any suicidal or homicidal ideations. His insight and judgment remain slightly impaired. TREATMENT PLAN 1. We will continue him on his current medications and treatment protocol. We will monitor his response to medications and make further adjustments as needed. 2. We will continue to follow up. Dictated by... Ayde Louis/marcelle TD: 08/11/2016 12:46 JOB #: [id number] [facility] PROGRESS NOTES Page 1 of 1 X Zackery Álvarez MD PROGRESS NOTE
--- NOTE | ~2016-08-10 | DS ---
Unit #: [id number] #: [id number] Patient: TEJAL ORTIZ [id number] [facility] [address] [place] [address] [id number] MR#: [id number] NAME: TEJAL ORTIZ ROOM: P185 Age: 65 Sex: M Admission Date: 08/10/2016 : 1950 Discharge Date: Attending Physician: Zackery Álvarez M.D. Primary Care Physician: Primary Care Physician No DISCHARGE SUMMARY IDENTIFYING DATA Mr. Ortiz is a 65-year-old , disabled, white male who is known to us from previous encounter and is a resident of [place], [place] and was discharged from my care last month and was self-referred back to the hospital. DISCHARGE DIAGNOSES Psychiatric: Major depressive disorder, recurrent, moderate, without psychotic features; alcohol dependence, moderate and acute withdrawals. Medical: Hypertension. Stressors: Moderate psychosocial stressors. HISTORY OF PRESENT ILLNESS Please see initial psychiatric evaluation for details. PAST PSYCHIATRIC HISTORY Please see initial psychiatric evaluation for details. PAST MEDICAL HISTORY Please see initial psychiatric evaluation for details. HOSPITAL COURSE The patient [facility] and was oriented to the hospital environment. Routine p.r.n. medications were initiated and he was started back on his home medications and alcohol detox protocol was initiated and he was also started back on Wellbutrin XL and Seroquel to help with depression and was closely monitored. He was initially seen to be very withdrawn, depressed, and seclusive to himself, though he was calm, cooperative, and compliant with treatment recommendations and was taking the medications regularly and was tolerating them fairly well and was able to show a decent therapeutic response with improvement in depression and anxiety and was willing to continue treatment on an outpatient basis, and as such, it was decided that he will be discharged home and will continue treatment on an outpatient basis. DISCHARGE MEDICATIONS Wellbutrin XL 150 mg in the morning for depression and Seroquel 100 mg at bedtime for depression. DISCHARGE CONDITION Stable. PROGNOSIS Unit #: [id number] #: [id number] Patient: TEJAL ORTIZ [facility]. Dictated by... Zackery Álvarez M.D. IAA/modl TD: 08/23/2016 07:13 JOB #: [id number] DISCHARGE SUMMARY Page 1 of 1 X Zackery Álvarez MD DISCHARGE SUMMARY
--- NOTE | ~2016-08-10 | PN ---
Unit #: [id number] #: [id number] Patient: TEJAL STANTON [id number] [facility] [address] [place] [address] [id number] I MR#: [id number] NAME: TEJAL STANTON ROOM: [facility] Age: 65 Sex: M Admission Date: 08/10/2016 : 1950 Attending Physician: Zackery Álvarez M.D. Admitting Physician: Zackery Álvarez M.D. Primary Care Physician: Primary Care Physician Bisi LUEVANO NOTES DATE OF SERVICE 08/16/2016 DISCUSSION Mr. Stanton is a 65-year-old white male who was seen today. Chart was reviewed and case was discussed with the staff. She has been anxious, withdrawn, depressed, and seclusive to himself and reports persistent depressive symptoms despite being on combination antidepressant, and he has not been able to show therapeutic response. The medications had just been initiated in the last few days. He has been taking the medications and tolerating them fairly well with no reported side effects. MENTAL STATUS EXAMINATION An elderly white male who is casually dressed with fair personal hygiene, appears to be in no acute distress or discomfort. He was awake and alert on interaction with intact orientation. His mood is anxious with congruent affect. He denies any suicidal or homicidal ideations. His insight and judgment remain slightly impaired. TREATMENT PLAN 1. We will continue him on his current medications and treatment protocol. We will monitor his response to the medications and make further adjustments as needed. 2. We will continue to follow up. Dictated by... Ayde Louis/anthony TD: 08/16/2016 11:44 JOB #: [id number] Unit #: [id number] #: [id number] Patient: TEJAL STANTON JOSEBEKAH BASSEM NOTES Page 1 of 1 X Zackery Álvarez MD PROGRESS NOTE
--- NOTE | ~2016-08-10 | PN ---
Unit #: [id number] #: [id number] Patient: ETJAL ORTIZ [id number] [facility] [address] [place] [address] [id number] I MR#: [id number] NAME: TEJAL ORTIZ ROOM: [facility] Age: 65 Sex: M Admission Date: 08/10/2016 : 1950 Attending Physician: Zackery Álvarez M.D. Admitting Physician: Zackery Álvarez M.D. Primary Care Physician: Primary Care Physician No [facility] PROGRESS NOTES JOB NOTE: VERIFY ADT. SUBJECTIVE Mr. Ortiz is 65-year-old while male who was seen today and chart was reviewed, and case was discussed with the staff. He has been anxious, withdrawn, though has not shown any agitation or irritability and has been cooperative with the treatment recommendations and has been taking medications and tolerating them fairly well with no reported side effects. MENTAL STATUS EXAMINATION An elderly white male who was casually dressed with fair personal hygiene, appears to be in no acute distress or discomfort. He was awake and alert on interaction with intact orientation. His mood was anxious and depressed with a congruent affect. He reports some suicidal ideation. He denies any homicidal ideation. His insight and judgment remain slightly impaired. TREATMENT PLAN 1. We will continue him on his current medications and treatment protocol. We will monitor his response to the medications and make further adjustments as needed. 2. We will continue to follow up. Dictated by... Ayde Louis/marcelle TD: 08/15/2016 08:22 JOB #: [id number] [facility] PROGRESS NOTES Page 1 of 1 X Zackery Álvarez MD X PROGRESS NOTE
--- NOTE | ~2016-08-10 | PN ---
Unit #: [id number] #: [id number] Patient: TEJAL STANTON [id number] [facility] [address] [place] [address] [id number] I MR#: [id number] NAME: TEAJL STANTON ROOM: [facility] Age: 65 Sex: M Admission Date: 08/10/2016 : 1950 Attending Physician: Zackery Álvarez M.D. Admitting Physician: Zackery Álvarez M.D. Primary Care Physician: Primary Care Physician Bisi LUEVANO NOTES DATE 08/14/2016 DISCUSSION Mr. Stanton is a 65-year-old, white male who was seen today and chart was reviewed and case was discussed with the staff. He has been anxious, withdrawn and seclusive to himself. He reports persistent depressive symptoms. Meanwhile, he has been cooperative with treatment recommendations. He has been taking medications and tolerating them fairly well with no reported side effects. MENTAL STATUS EXAM An elderly white male who was casually dressed with fair personal hygiene, appears to be in no acute distress or discomfort. He was awake and alert on interaction with intact orientation. His mood was anxious and depressed with congruent affect. His speech was slow and restricted to contact. He reports having suicidal ideation but denies any homicidal ideation. Also, denies any auditory or visual hallucinations. His insight and judgement remains slightly impaired. TREATMENT PLAN 1. We will continue him on his current treatment protocol. We will monitor his response and make further adjustments as needed. 2. We will continue to follow up. Dictated by... Ayde Louis/oziel TD: 08/15/2016 00:24 JOB #: [id number] Unit #: [id number] #: [id number] Patient: TEJAL STANTON JOSEBEKAH PROGRESS NOTES Page 1 of 1 X Zackery Álvarez MD PROGRESS NOTE
--- NOTE | ~2016-08-10 | PN ---
Unit #: [id number] #: [id number] Patient: TEJAL STANTON [id number] [facility] [address] [place] [address] [id number] I MR#: [id number] NAME: TEJAL STANTON ROOM: [facility] Age: 65 Sex: M Admission Date: 08/10/2016 : 1950 Attending Physician: Zackery Álvarez M.D. Admitting Physician: Zackery Álvarez M.D. Primary Care Physician: Primary Care Physician Bisi LUEVANO NOTES DATE August 13, 2016 DISCUSSION Mr. Stanton is a 65-year-old white male, who was seen today and chart was reviewed and the case was discussed with the staff. He has been anxious, withdrawn, and seclusive to himself and he has had persistent depressive symptoms and he has been taking the medications and tolerating them fairly well with no reported side effects. MENTAL STATUS EXAMINATION An elderly white male, who was casually dressed with fair personal hygiene and appears to be in no acute distress or discomfort. He was awake and alert on interaction with intact orientation. His mood is anxious with a congruent affect. He denies any suicidal or homicidal ideations. His insight and judgment remain slightly impaired. TREATMENT PLAN 1. We will continue him on his current medications and treatment protocol, and will monitor his response to the medications, and make further adjustments as needed. 2. We will continue to followup. Dictated by... Ayde Louis/unique TD: 08/14/2016 13:08 JOB #: [id number] Unit #: [id number] #: [id number] Patient: TEJAL STANTON JOSEBEKAH PROGRESS NOTES Page 1 of 1 X Zackery Álvarez MD PROGRESS NOTE
--- NOTE | ~2016-08-10 | PN ---
Unit #: [id number] #: [id number] Patient: TEJAL STANTON [id number] [facility] [address] [place] [address] [id number] I MR#: [id number] NAME: TEJAL STANTON ROOM: [facility] Age: 65 Sex: M Admission Date: 08/10/2016 : 1950 Attending Physician: Zackery Álvarez M.D. Admitting Physician: Zackery Álvarez M.D. Primary Care Physician: Primary Care Physician Bisi LUEVANO NOTES DATE 08/12/2016 DISCUSSION Mr. Stanton is a 65-year-old, white male with alcohol dependence and mood disorder who was seen today and chart was reviewed and case was discussed with the staff. He has been anxious, withdrawn and rather seclusive to himself. Meanwhile, he has been cooperative with treatment recommendations. He has been taking the medication and tolerating them fairly well with no reported side effects. MENTAL STATUS EXAM An elderly white male who was casually dressed with fair personal hygiene, appears to be in no acute distress or discomfort. He was awake and alert on interaction with intact orientation. His mood was anxious with congruent affect. He denies any suicidal or homicidal ideation. His insight and judgement remains slightly impaired. TREATMENT PLAN 1. We will continue him on his current medications and treatment protocol. We will monitor his response to the medication and make further adjustments as needed. 2. We will continue to follow up. Dictated by... Ayde Louis/oziel TD: 08/13/2016 04:46 JOB #: [id number] Unit #: [id number] #: [id number] Patient: TEJAL STANTON JOSEBEKAH PROGRESS NOTES Page 1 of 1 X Zackery Álvarez MD PROGRESS NOTE
--- NOTE | ~2016-08-10 | HP ---
Unit #: [id number] #: [id number] Patient: IGOR STANTON [id number] [place] [address] [id number] I MR#: [id number] NAME: IGOR STANTON ROOM: [facility] Age: 65 Sex: M Admission Date: 08/10/2016 : 1950 Attending Physician: Zackery Álvarez M.D. Admitting Physician: Zackery Álvarez M.D. Primary Care Physician: Primary Care Physician No HISTORY AND PHYSICAL HISTORY OF PRESENT ILLNESS Igor is a 65-year-old male admitted on 08/10/2016 for depression and alcohol detox. PAST MEDICAL HISTORY 1. Hypertension. 2. COPD. 3. Depression. PAST SURGICAL HISTORY 1. Cholecystectomy. 2. Tonsil and adenoidectomy. ALLERGIES Losartan and azithromycin. SOCIAL HISTORY No tobacco or illegal drug use. Does drink a fifth of alcohol daily. He is currently and living with his mother. FAMILY HISTORY Noncontributory. REVIEW OF SYSTEMS CONSTITUTIONAL: No fever or chills. HEENT: Denies any sore throat, ear pain or runny nose. CARDIOVASCULAR: Denies chest pain, irregular heart rhythm or palpitations. CHEST: Denies shortness of breath or cough. No hemoptysis. GASTROINTESTINAL: Denies nausea, vomiting, diarrhea or chronic constipation. ENDOCRINE: Denies history of increased thirst or urination. No recent significant weight loss or gain. GENITOURINARY: Denies dysuria, frequency, or hematuria. SKIN: Denies any rashes. HEMATOLOGIC: Denies history of increased bleeding or bruising. MUSCULOSKELETAL: Denies any hot, swollen joints. No generalized muscle pain. NEUROLOGIC: Denies problems with vision or speech. No frequent, severe headaches. No numbness, tingling or weakness in any extremities. Denies loss of bladder or bowel control. CURRENT MEDICATIONS None. Unit #: [id number] #: [id number] Patient: IGOR STANTON PHYSICAL EXAMINATION GENERAL: Alert, oriented in no acute distress. VITAL SIGNS: Blood pressure 164/96, heart rate 105, respirations 16. HEIGHT: 5 feet 9. WEIGHT: 189 pounds. SKIN: Warm and dry without rash or lesion. HEENT: Normocephalic. TMs not viewed. Oral and nasal passages clear. Conjunctivae clear. PERRLA. EOMs intact. NECK: Supple without lymphadenopathy or thyromegaly. HEART: Regular rate and rhythm without murmur. LUNGS: Clear. ABDOMEN: Soft, nontender, without masses or hepatosplenomegaly. : Not done. EXTREMITIES: No evidence of cyanosis, clubbing or edema. Moves all without focal deficit. NEUROLOGICAL: Grossly within normal limits. Cranial Nerves: II: Visual porter are intact. III, IV AND : Extraocular movements are intact. Pupils are equal, round and reactive to light. V: Facial sensation is grossly normal. VII: Facial movements and expression are normal. VIII: Auditory acuity grossly intact. IX, X: Uvula is midline. Phonation is normal. XI: Patient shrugs shoulders and turns head normally. XII: Tongue protrudes in the midline. Sensory and Motor Function: Sensory and motor sensation is grossly normal. Motor: moves all extremities well. Coordination: Gait is normal. Deep Tendon Reflexes: Intact. IMPRESSION 1. Psychiatric admission. 2. Hypertension. 3. Chronic obstructive pulmonary disease. 4. Depression. RECOMMENDATIONS PSYCHIATRIC: Per psychiatrist. MEDICAL: No contraindications to participate in facility's activities. MEDICAL PROGNOSIS Good. MEDICAL CONDITION Stable. Dictated by... Temitope Patino/livan TD: 08/11/2016 15:20 JOB #: [id number] Unit #: [id number] #: [id number] Patient: IGOR STANTON HISTORY AND PHYSICAL Page 1 of 1 X CRISTINA DONG APRN X HISTORY AND PHYSICAL
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
--- NOTE | ~2016-08-10 | PN ---
Unit #: [id number] #: [id number] Patient: TEJAL STANTON [id number] [facility] [address] [place] [address] [id number] MR#: [id number] NAME: TEJAL STANTON ROOM: [facility] Age: 65 Sex: M Admission Date: 08/10/2016 : 1950 Attending Physician: Zackery Álvarez M.D. Admitting Physician: Zackery Álvarez M.D. Primary Care Physician: Primary Care Physician Bisi LUEVANO NOTES DATE 08/21/2016 DISCUSSION Mr. Stanton is a 65-year-old, white male who was seen today and chart was reviewed and case was discussed with the staff. He remains anxious, withdrawn and seclusive to himself and reports persistent depression symptoms but he has been taking medications and tolerating them fairly well with no reported side effects. MENTAL STATUS EXAM Young white male who was casually dressed with fair personal hygiene, appears to be in no acute distress or discomfort. He was awake and alert on interaction with intact orientation. His mood was anxious with congruent affect. He denies any suicidal or homicidal ideation. Also, denies any auditory or visual hallucinations. His insight and judgement remains slightly impaired. TREATMENT PLAN 1. We will continue him on his current medications and treatment protocol. We will monitor his response to the medication and make further adjustments as needed. 2. We will continue to follow up. Dictated by... Ayde Louis/oziel TD: 08/22/2016 02:12 JOB #: [id number] Unit #: [id number] #: [id number] Patient: TEJAL STANTON JOSEBEKAH PROGRESS NOTES Page 1 of 1 X Zackery Álvarez MD PROGRESS NOTE
[2016-08-11 14:22] LABS: BASOPHIL% 0.6 % (0-2.5); EOSINOPHIL% 1.3 % (0.0-7.0); HEMATOCRIT 44.6 % (38.0-50.0); HEMOGLOBIN 15.1 gm/dL (13.0-16.0); LYMPHOCYTE# 0.9 X10e3 (1.0-3.5); LYMPHOCYTE% 23.3 % (17.0-45.0); MEAN CELL VOLUME 93.3 FL (83-96); MEAN CORPUSCULAR HEMOGLOBIN 31.5 PG (28-34); MEAN CORPUSCULAR HGB CONC 33.7 g/dL (30-36); MEAN PLATELET VOLUME 7.7 FL (6.5-11.5); MONOCYTE# 0.5 X10e3 (0-1.0); MONOCYTE% 13.6 % (3.0-12.0); NEUTROPHIL# 2.2 X10e3 (1.5-7.1); NEUTROPHIL% 61.2 % (40-75); RED BLOOD COUNT 4.79 X10e (3.90-5.60); RED CELL DISTRIBUTION WIDTH 15.2 % (11.0-15.5); WHITE BLOOD COUNT 3.7 X10e3 (4.0-10.5)
[2016-08-11 14:41] LABS: DIFF IND YES; PLATELET COUNT 80 X10e3 (140-420)
[2016-08-11 14:45] LABS: PLATELET ESTIMATE DECREASED (NORMAL); RBC NORMAL YES
[2016-08-11 14:52] LABS: ALBUMIN SERUM 3.8 g/dL (3.5-5.0); BILIRUBIN,TOTAL 1.7 mg/dL (0.2-2.0); BUN/CREATININE RATIO 13.33; CALCIUM SERUM 9.2 mg/dL (8.4-10.2); CREATININE SERUM 0.9 mg/dL (0.6-1.4); GLOM FILT RATE Estimated 89.3 mL/min (>60); POTASSIUM 3.5 mmol/L (3.5-5.1); PROTEIN TOTAL SERUM 6.9 g/dL (6.0-8.3)
[2016-08-12 11:51] LABS: URINE APPEARANCE CLEAR; URINE BLOOD NEG (NEG); URINE COLOR DK YELLOW; URINE GLUCOSE NEG (NEG); URINE KETONE 1+ (NEG); URINE LEUKOCYTE ESTERASE NEG (NEG); URINE NITRATE NEG (NEG); URINE PROTEIN TRACE (NEG)
[2016-08-12 12:00] LABS: URINE BILIRUBIN POS (NEG)
[2016-08-12 12:06] LABS: AMPHETAMINE NEG (NEG); BARBITURATES NEG (NEG); BENZODIAZEPINES POS (NEG); COCAINE NEG (NEG); MARIJUANA NEG (NEG); OPIATES NEG (NEG); TRICYCLIC ANTIDEPRESSANTS NEG (NEG); U METHADONE NEG (NEG)
== END 2016-08-23 12:30 | DRG 885 ==
LOC: P1E 18:42
PROVIDERS: Psychiatry & Neurology Psychiatry
PROC: HZ2ZZZZ Detoxification Services for Substance Abuse Treatment (ICD-10-PCS; principal; 2016-08-10)
DX: F33.1 Major depressive disorder, recurrent, moderate (principal); J44.9 Chronic obstructive pulmonary disease, unspecified; I10 Essential (primary) hypertension; F10.239 Alcohol dependence with withdrawal, unspecified
CPT/HCPCS: 80053; 80307; 81003; 85025; 86592